=== PATIENT | male | born 1960 | race Caucasian/White ===

== ENCOUNTER → 2020-12-05 | Outpatient (CLI) | payer OTHER ==
--- NOTE | 2020-12-08 07:49 | PE ---
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 TECHNIQUE: Following the intravenous administration of 10.0 mCi of F-18 FDG, whole body images are p erformed from the skull base to the midthigh. Images are reviewed on the computer in the coronal, ax ial, and sagittal planes. Reconstructed rotating images are created on independent workstation and r eviewed on the computer. A localization and attenuation correction CT is performed in conjunction w ith the PET scan. Blood glucose level equals 90. SCAN: Subsequent Scan FINDINGS: SKULL BASE AND NECK: Extensive postsurgical changes now identified. No new suspicious focal hypermet abolic uptake at oropharyngeal level to suggest local neoplastic recurrence. Improved bilateral hypermetabolic adenopathy after interval extensive surgery with more prominent cli ps and subsequent chemotherapy and radiation treatment. There is however 9 x 8 mm lateral right subma ndibular hypermetabolic lymph node axial image 51, max SUV is 6.61. There is also 1.3 x 1.1 cm hyperm etabolic mass or lymph node inferior left parotid gland level axial image 46, max SUV is 9.24. CHEST, MEDIASTINUM, AND HILAR REGION: There is new 1.7 x 1.6 cm hypermetabolic right hilar mass or ly mph node axial image 110, max SUV is. 7.68 Inferior to this there is additional 2.0 x 1.7 cm hypermet abolic right infrahilar mass or lymph node axial image 117, max SUV is 6.08. There are new abnormal hypermetabolic prevascular lymph nodes, for reference axial image 100 Max SUV is 3.41. There is 1.6 x 1.3 cm hypermetabolic subcarinal lymph node axial image 114, max SUV is 4.89. There are right lateral thoracic hypermetabolic subcutaneous nodules for reference two adjacent subce ntimeter nodules axial image 121, max SUV is 3.44 at this level. There is an enlarged 1.8 x 0.8 cm hy permetabolic nodule posterior superior to this axial image 114, max SUV is 4.81. ABDOMEN AND PELVIS: Normal excretion is redemonstrated. No new areas of abnormal hypermetabolic uptak e. OSSEOUS STRUCTURES: No new areas of abnormal hypermetabolic uptake. OTHER CT: Moderate to severe three-vessel coronary artery calcification is redemonstrated, noted shey ed underlying coronary artery disease. Scattered bilateral pelvic phleboliths. IMPRESSION: Interval surgical and posttreatment change with improved local positive treatment respons e but new areas of bilateral neck disease and new thoracic metastatic disease noted as detailed above .
== END | disposition home or self-care (01) ==
LOC: RADPETMAIN 15:50
PROVIDERS: ATTEND Radiology Radiation Oncology
DX: C01 Malignant neoplasm of base of tongue (principal); C79.89 Secondary malignant neoplasm of other specified sites
CPT/HCPCS: 78815; A9552

== ENCOUNTER 2021-01-01 11:19 | Day surgery (SDC) | payer OTHER ==
[2020-12-31 12:10] VITALS: BMI 24.3
[~2021-01-01 11:19] MED LIST: ACETAMINOPHEN TAB 500 MG TAB PO PRN; DEXAMETHASONE SOD PHOSPHATE 4 MG/ML 1 ML VIAL IV ONE; HEPARIN SODIUM,PORCINE/PF 5,000 UNIT/0.5 ML SYRINGE SQ PRN; LACTATED RINGERS 1,000 ML IV SCH; LIDOCAINE 1% (10MG/ML) FOR IV START INTRADERMA PRN; ONDANSETRON 4 MG/2 ML VIAL IVP ONE; Pre Op ABX Message 1 EACH MISC MISCELLANE ONE
[2021-01-01 12:09] VITALS: RESP 16; TEMP 97.8
[2021-01-01] MEDS ORDERED: fentaNYL (PF) 50 MCG/ML 2 ML AMP ONE (12:59)
[2021-01-01] MEDS ORDERED: PROPOFOL 10 MG/ML 20 ML VIAL IV ONE (12:59)
[2021-01-01] MEDS ORDERED: LIDOCAINE 1% INJ 10MG/ML (20 ML MDV) ONE (12:59)
[2021-01-01] MEDS ORDERED: MIDAZOLAM 2 MG/2 ML VIAL ONE (12:59)
--- NOTE | 2021-01-01 13:03 | P.GSHP ---
History of Present Illness H&P Date: 01/01/21 Chief Complaint: Recurrent head and neck cancer Patient here today for Port-A-Cath placement. Patient with history of head and neck cancer which has recurred now twice. He is starting chemotherapy once again. Requesting a port placement for ease of use. 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 and mouth), last chemo 4 months ago, last radiation 09/04/2020 History of Any Multi-Drug Resistant Organisms: None Reported Past Surgical History: Orthopedic Surgery Additional Past Surgical History / Comment(s): 06/06/2019-surgery on tongue to remove cancer and removal of lympth nodes in throat, ben wrist carpal tunnel Past Anesthesia/Blood Transfusion Reactions: No Reported Reaction Additional Past Anesthesia/Blood Transfusion Reaction / Comment(s): states he has some paralysis of rt shoulder and mouth after cancer surgery but states no diff with intubation Smoking Status: Never smoker - Past Family History Mother Family Medical History: Cancer Medications and Allergies Home Medications Medication Instructions Recorded Confirmed Type Cevimeline [Evoxac] 30 mg PO TID 12/31/20 12/31/20 History Losartan Potassium [Cozaar] 100 mg PO DAILY 12/31/20 12/31/20 History Multivitamins, Thera [Multivitamin 1 tab PO DAILY 12/31/20 12/31/20 History (formulary)] fentaNYL 75MCG/HR PATCH [Duragesic 1 patch TRANSDERM Q72H 12/31/20 12/31/20 History 75MCG/HR] oxyCODONE HCL/ACETAMINOPHEN 1 tab PO Q4HR PRN 12/31/20 12/31/20 History [Percocet 10-325 mg] Allergies Allergy/AdvReac Type Severity Reaction Status Date / Time No Known Allergies Allergy Verified 01/01/21 11:46 Surgical - Exam Vital Signs Temp Pulse Resp BP Pulse Ox 97.8 F 74 16 147/80 99 01/01/21 11:47 01/01/21 11:47 01/01/21 11:47 01/01/21 11:47 01/01/21 11:47 Physical exam: General: Well-developed, well-nourished HEENT: Postsurgical scarring, nodule right submandibular, left neck masses Abdomen: Nontender, nondistended Extremities: No edema Neuro: Alert and oriented Assessment and Plan (1) Head and neck cancer Narrative/Plan: Will proceed with Port-A-Cath placement. Risks of bleeding, infection, DVT, pneumothorax, catheter malfunction, anesthesia related complications were discussed. The patient understands and wishes to proceed. Current Visit: Yes Status: Acute Code(s): C76.0 - MALIGNANT NEOPLASM OF HEAD, FACE AND NECK SNOMED Code(s): 527485374
[2021-01-01] MEDS ORDERED: LIDOCAINE 1% INJ 10MG/ML (20 ML MDV) SQ ONE (13:05)
[2021-01-01] MEDS ORDERED: ceFAZolin 1,000 MG VIAL IVPB ONE (13:25)
[2021-01-01] MEDS ORDERED: HYDROmorphone 1 MG/ML 1 ML SYRINGE IVP ONE (14:29)
[2021-01-01 14:32] VITALS: BP 155/95; PULSE 66
[2021-01-01] MEDS ORDERED: NALOXONE 0.4 MG/ML 1 ML VIAL IV PRN (14:32)
--- NOTE | 2021-01-01 14:35 | P.OP ---
Date of Procedure: 01/01/21 Procedure(s) Performed: PREOPERATIVE DIAGNOSIS: Recurrent head and neck cancer POSTOPERATIVE DIAGNOSIS: Same PROCEDURE: Port-A-Cath placement with fluoroscopic and ultrasound guidance SURGEON: Audrey EBL: Minimal ANESTHESIA: Sedation COMPLICATIONS: None OPERATIVE PROCEDURE: Patient was brought and placed on the operative table in the supine position. The patient was sedated per anesthesia that time. The chest and neck were prepped and draped in usual sterile fashion. The ultrasound probe was used to identify the location of the right internal jugular vein. The skin was localized with lidocaine. The Seldinger needle was advanced into the IJ under ultrasound guidance. The wire was advanced through the needle under fluoroscopic guidance into the superior vena cava. A port pocket was created in the right infraclavicular location. The catheter was tunneled from the wire entrance site to the port pocket. The port was then connected to the catheter. The dilator introducer was threaded over the guidewire. The guidewire and dilator were then removed. The catheter was advanced through the introducer and introducer was then removed. The tip was seen to be in the right atrial junction via fluoroscopy. A picture of the radiograph showing the tip at the radial digital junction was taken. Port was flushed with both saline and a Hep- Lock solution. There was good flow both in and out of the port. The port was sutured in underlying tissues using 3-0 silk sutures. The subcutaneous tissues were reapproximated using 3-0 Vicryl sutures and the skin at both locations using 4-0 Monocryl sutures. Skin glue and sterile dressings then applied. DISPOSITION: Stable to recovery room
--- NOTE | 2021-01-01 14:52 | XR ---
EXAMINATION TYPE: XR chest 1V DATE OF EXAM: 01/01/2021 COMPARISON: NONE HISTORY: Port-A-Cath insertion TECHNIQUE: Single frontal view of the chest is obtained. FINDINGS: Right Mediport catheter with its tip at the cavoatrial junction. Heart size is within norm al limits. Atherosclerotic aortic knob. No focal consolidation, pneumothorax or pleural effusion. Scout gical clips project over the bilateral neck. IMPRESSION: 1. No acute pulmonary disease. Right Mediport catheter with the tip the cavoatrial junction.
--- NOTE | 2021-01-02 16:14 | FL ---
Fluoroscopy HISTORY: Pain 17 seconds fluoroscopy time supplied to the referring clinician. Single C-arm image for Port-A-Cath p lacement. See dictated report from Dr. Ventura.
== END 2021-01-01 15:07 | disposition home or self-care (01) ==
LOC: OR 11:19
PROVIDERS: ATTEND Surgery
DX: C76.0 Malignant neoplasm of head, face and neck (principal); I10 Essential (primary) hypertension; Z92.21 Personal history of antineoplastic chemotherapy; Z92.3 Personal history of irradiation; Z98.890 Other specified postprocedural states; Z80.9 Family history of malignant neoplasm, unspecified; Z79.891 Long term (current) use of opiate analgesic; Z79.899 Other long term (current) drug therapy
CPT/HCPCS: 36561; 76937; 77001; 71045; C1788; J2250; J1100; J2405; J0690; J2001; J3010; J1170; J1642; J2704; J1644

== ENCOUNTER → 2021-03-06 | Outpatient (CLI) | payer OTHER ==
--- NOTE | 2021-03-10 08:29 | PE ---
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 Currently undergoing chemotherapy. TECHNIQUE: Following the intravenous administration of 10.42 mCi of F-18 FDG, whole body images are performed from the skull base to the midthigh. Images are reviewed on the computer in the coronal, a xial, and sagittal planes. Reconstructed rotating images are created on independent workstation and reviewed on the computer. A localization and attenuation correction CT is performed in conjunction with the PET scan. Dedicated PET/CT imaging of the neck. Blood glucose level equals 143 SCAN: Subsequent Scan FINDINGS: SKULL BASE AND NECK: The prior visualized hypermetabolic right submandibular 9 x 8 mm lymph node now is not clearly identified. Also similar 1.1 x 1.3 cm left inferior parotid gland mass or lymph node i s not clearly identified. Extensive surgical changes to bilateral neck are redemonstrated. There is more hypermetabolic cervica l muscular uptake bilaterally on current study. Nonspecific symmetric uptake at level of vocal cords presumed benign. Only suspicious area is right lateral mandibular 1.7 x 1.0 cm hypermetabolic area ax ial image 48, max SUV is 3.44. This area may have been present prior study axial image 53 fusion and 51 series 3. CHEST, MEDIASTINUM, AND HILAR REGION: Right hilar lymph nodes show improvement in size and hypermetab olic uptake 117, max SUV is versus 7.68 prior study. No abnormal hypermetabolic uptake prevascular region current study consistent with positive treatment response. There is no abnormal hypermetabolic uptake in subcarinal lymph node current study also. Right lateral thoracic hypermetabolic lymph nodes near axial image 112 are diminished in size and cur rently ametabolic. No new areas of abnormal hypermetabolic uptake. ABDOMEN AND PELVIS: No new areas of abnormal hypermetabolic uptake. OSSEOUS STRUCTURES: Multiple new hypermetabolic osseous metastatic lesions. For reference destructive inferior right scapular lesion axial image 106. There is hypermetabolic lesion left scapula axial im age 78. This hypermetabolic lesion inferior sternum responding to subtle sclerotic lesion right of mi dline axial image 130. For metabolic subtle lytic thoracic lesions noted T6 level and T8 level. There are is hypermetabolic left sacral lesion axial image 223 and some additional scattered sclerotic les ions throughout the pelvis bilaterally including left proximal femur axial image 267. Subtle right lo wer lateral rib lesion axial image 160. OTHER CT: New Right internal jugular Mediport catheter terminates in SVC. Moderate to severe three-ve ssel coronary artery calcification is redemonstrated, noted marked underlying coronary artery disease . Small right pleural effusion. Scattered bilateral pelvic phleboliths are redemonstrated.. IMPRESSION: Overall mixed response. New Osseous metastatic disease but positive treatment response to cervical and thoracic lesion involvement as detailed above.
== END | disposition home or self-care (01) ==
LOC: RADPETMAIN 09:40
PROVIDERS: ATTEND Internal Medicine Hematology & Oncology
DX: C79.51 Secondary malignant neoplasm of bone (principal); C02.9 Malignant neoplasm of tongue, unspecified
CPT/HCPCS: 78815; A9552

== ENCOUNTER 2021-03-11 23:44 | Inpatient (IN) | payer BC, OTHER ==
[2021-03-12] MEDS ORDERED: ONDANSETRON 4 MG/2 ML VIAL IVP STA (00:27)
[2021-03-12] MEDS ORDERED: HYDROmorphone 1 MG/ML 1 ML SYRINGE IVP STA ×2 (00:27→02:24)
--- NOTE | 2021-03-12 00:34 | ED ---
Nausea/Vomiting/Diarrhea HPI - General Source: patient, RN notes reviewed Mode of arrival: ambulatory Limitations: no limitations <Marlo Schneider - Last Filed: 03/12/21 02:25> <Brant Ritchie - Last Filed: 03/14/21 13:43> - General Chief complaint: Nausea/Vomiting/Diarrhea Stated complaint: CA pt, pain Time Seen by Provider: 03/12/21 00:05 - History of Present Illness Initial comments: This is a 60-year-old male presents emergency Department chief complaint of back pain. 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 Patient states that he has back a pain is unbearable uncontrollable his oxycodone, fentanyl patch. Patient that no bowel bladder incontinence or retention no chest pain or shortness of breath. Patient had some nausea and decreased oral intake. Patient is currently seen Dr. Nieves, is in between treatments not on chemotherapy or radiation. (Marlo Schneider) - Related Data Home Medications Medication Instructions Recorded Confirmed Cevimeline [Evoxac] 30 mg PO TID 12/31/20 03/12/21 Losartan Potassium [Cozaar] 100 mg PO DAILY 12/31/20 03/12/21 Multivitamins, Thera [Multivitamin 1 tab PO DAILY 12/31/20 03/12/21 (formulary)] Pilocarpine [Salagen] 5 mg PO TID 03/12/21 03/12/21 Polyethylene Glycol 3350 [Miralax] 17 gm PO BID PRN 03/12/21 03/12/21 Sennosides/Docusate Sodium [Senna 2 cap PO HS 03/12/21 03/12/21 Plus 8.6-50 mg Softgel] fentaNYL 100MCG/HR PATCH 1 patch TRANSDERM Q48H 03/12/21 03/12/21 [Duragesic 100MCG/HR] fentaNYL 25MCG/HR PATCH [Duragesic 2 patch TRANSDERM Q48H 03/12/21 03/12/21 25MCG/HR] oxyCODONE HCL [oxyCODONE HCL (IR)] 15 - 30 mg PO Q6H PRN 03/12/21 03/12/21 Allergies Allergy/AdvReac Type Severity Reaction Status Date / Time No Known Allergies Allergy Verified 03/12/21 08:26 Review of Systems ROS Other: All systems not noted in ROS Statement are negative. <Marlo Schneider - Last Filed: 03/12/21 02:25> ROS Other: All systems not noted in ROS Statement are negative. <Brant Ritchie - Last Filed: 03/14/21 13:43> ROS Statement: Those systems with pertinent positive or pertinent negative responses have been documented in the HPI. 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 mets to back. History of Any Multi-Drug Resistant Organisms: None Reported Past Surgical History: Orthopedic Surgery Additional Past Surgical History / Comment(s): 06/06/2019-surgery on tongue to remove cancer and removal of lympth nodes in throat, ben wrist carpal tunnel Past Anesthesia/Blood Transfusion Reactions: No Reported Reaction Additional Past Anesthesia/Blood Transfusion Reaction / Comment(s): states he has some paralysis of rt shoulder and mouth after cancer surgery but states no diff with intubation Past Psychological History: No Psychological Hx Reported Smoking Status: Never smoker Past Alcohol Use History: None Reported Past Drug Use History: None Reported - Past Family History Mother Family Medical History: Cancer <Marlo Schneider - Last Filed: 03/12/21 02:25> General Exam Limitations: no limitations General appearance: alert, in no apparent distress Head exam: Present: atraumatic, normocephalic, normal inspection Neck exam: Present: normal inspection. Absent: tenderness, meningismus, lymphadenopathy Respiratory exam: Present: normal lung sounds bilaterally. Absent: respiratory distress, wheezes, rales, rhonchi, stridor Cardiovascular Exam: Present: regular rate, normal rhythm, normal heart sounds. Absent: systolic murmur, diastolic murmur, rubs, gallop, clicks GI/Abdominal exam: Present: soft, normal bowel sounds. Absent: distended, tenderness, guarding, rebound, rigid Back exam: Present: tenderness, vertebral tenderness. Absent: full ROM Neurological exam: Present: alert, oriented X3 <Marlo Schneider - Last Filed: 03/12/21 02:25> Course Vital Signs 03/11/21 03/12/21 03/12/21 23:46 00:30 02:37 Temperature 98.3 F 98.7 F Pulse Rate 100 78 75 Pulse Rate [ Pulse Oximetery ] Respiratory 20 20 18 Rate Blood Pressure 184/99 163/97 156/81 Blood Pressure [Left Arm] O2 Sat by Pulse 93 L 96 98 Oximetry 03/12/21 03/12/21 03/12/21 07:50 13:00 19:21 Temperature 98.6 F 98.8 F Pulse Rate 65 86 Pulse Rate [ 81 Pulse Oximetery ] Respiratory 18 16 20 Rate Blood Pressure 154/87 187/92 Blood Pressure 182/90 [Left Arm] O2 Sat by Pulse 99 99 99 Oximetry Medical Decision Making - Lab Data Result diagrams: 03/12/21 00:55 03/12/21 00:55 <Marlo Schneider - Last Filed: 03/12/21 02:25> - Lab Data Result diagrams: 03/13/21 06:02 03/14/21 05:31 <Brant Ritchie - Last Filed: 03/14/21 13:43> - Medical Decision Making I saw this patient in conjunction with the physician research program assistant. I performed independent history and physical exam. Agree with case management. (Brant Mason) - Lab Data Lab Results 03/12/21 03/12/21 03/12/21 Range/Units 00:55 00:55 00:55 WBC 3.3 L (3.8-10.6) k/uL RBC 3.04 L (4.30-5.90) m/uL Hgb 10.1 L (13.0-17.5) gm/dL Hct 28.9 L (39.0-53.0) % MCV 95.2 (80.0-100.0) fL MCH 33.3 (25.0-35.0) pg MCHC 35.0 (31.0-37.0) g/dL RDW 19.1 H (11.5-15.5) % Plt Count 25 L (150-450) k/uL MPV 6.7 Neutrophils % 78 % Lymphocytes % 12 % Monocytes % 5 % Eosinophils % 1 % Basophils % 1 % Neutrophils # 2.6 (1.3-7.7) k/uL Lymphocytes # 0.4 L (1.0-4.8) k/uL Monocytes # 0.2 (0-1.0) k/uL Eosinophils # 0.0 (0-0.7) k/uL Basophils # 0.0 (0-0.2) k/uL Poikilocytosis Slight Anisocytosis Slight Macrocytosis Slight Sodium 135 L (137-145) mmol/L Potassium 3.9 (3.5-5.1) mmol/L Chloride 96 L (98-107) mmol/L Carbon Dioxide 33 H (22-30) mmol/L Anion Gap 6 mmol/L BUN 20 (9-20) mg/dL Creatinine 1.44 H (0.66-1.25) mg/dL Est GFR (CKD-EPI)AfAm 60 (>60 ml/min/1.73 sqM) Est GFR (CKD-EPI)NonAf 52 (>60 ml/min/1.73 sqM) Glucose 118 H (74-99) mg/dL Calcium 14.7 H* (8.4-10.2) mg/dL Total Bilirubin 0.8 (0.2-1.3) mg/dL AST 27 (17-59) U/L ALT 11 (4-49) U/L Alkaline Phosphatase 101 (38-126) U/L Troponin I <0.012 (0.000-0.034) ng/mL Total Protein 6.6 (6.3-8.2) g/dL Albumin 3.3 L (3.5-5.0) g/dL Vitamin D 25-Hydroxy (30.0-100.0) ng/mL TSH (0.350-5.500) uIU/mL 03/12/21 Range/Units 00:55 WBC (3.8-10.6) k/uL RBC (4.30-5.90) m/uL Hgb (13.0-17.5) gm/dL Hct (39.0-53.0) % MCV (80.0-100.0) fL MCH (25.0-35.0) pg MCHC (31.0-37.0) g/dL RDW (11.5-15.5) % Plt Count (150-450) k/uL MPV Neutrophils % % Lymphocytes % % Monocytes % % Eosinophils % % Basophils % % Neutrophils # (1.3-7.7) k/uL Lymphocytes # (1.0-4.8) k/uL Monocytes # (0-1.0) k/uL Eosinophils # (0-0.7) k/uL Basophils # (0-0.2) k/uL Poikilocytosis Anisocytosis Macrocytosis Sodium (137-145) mmol/L Potassium (3.5-5.1) mmol/L Chloride (98-107) mmol/L Carbon Dioxide (22-30) mmol/L Anion Gap mmol/L BUN (9-20) mg/dL Creatinine (0.66-1.25) mg/dL Est GFR (CKD-EPI)AfAm (>60 ml/min/1.73 sqM) Est GFR (CKD-EPI)NonAf (>60 ml/min/1.73 sqM) Glucose (74-99) mg/dL Calcium (8.4-10.2) mg/dL Total Bilirubin (0.2-1.3) mg/dL AST (17-59) U/L ALT (4-49) U/L Alkaline Phosphatase (38-126) U/L Troponin I (0.000-0.034) ng/mL Total Protein (6.3-8.2) g/dL Albumin (3.5-5.0) g/dL Vitamin D 25-Hydroxy 45.6 (30.0-100.0) ng/mL TSH 1.020 (0.350-5.500) uIU/mL Disposition <Marlo Schneider - Last Filed: 03/12/21 02:25> <Brant Ritchie - Last Filed: 03/14/21 13:43> Clinical Impression: Pancytopenia, Metastatic cancer Disposition: ADMITTED IP TO THIS HOSP Condition: Fair
[2021-03-12 01:23] LABS: Albumin 3.3 g/dL (3.5-5.0); Total Bilirubin 0.8 mg/dL (0.2-1.3); Total Protein 6.6 g/dL (6.3-8.2)
[2021-03-12 01:46] LABS: Anisocytosis Slight; Basophils % (A) 1 %; Eosinophils % (A) 1 %; HCT 28.9 % (39.0-53.0); HGB 10.1 gm/dL (13.0-17.5); Lymphocytes # (A) 0.4 k/uL (1.0-4.8); Lymphocytes % (A) 12 %; MCH 33.3 pg (25.0-35.0); MCV 95.2 fL (80.0-100.0); Macrocytosis Slight; Mean Platelet Volume 6.7; Monocytes # (A) 0.2 k/uL (0-1.0); Monocytes % (A) 5 %; Neutrophils # (A) 2.6 k/uL (1.3-7.7); Neutrophils % (A) 78 %; Poikilocytosis Slight; RBC 3.04 m/uL (4.30-5.90); RDW 19.1 % (11.5-15.5); WBC 3.3 k/uL (3.8-10.6)
[2021-03-12 01:59] LABS: Potassium 3.9 mmol/L (3.5-5.1)
[2021-03-12 02:11] LABS: Platelet Count 25 k/uL (150-450)
[2021-03-12] MEDS ORDERED: HYDROmorphone 0.5 MG/0.5 ML SYRINGE IVP PRN (02:28)
[2021-03-12] MEDS ORDERED: NALOXONE 0.4 MG/ML 1 ML VIAL IV PRN (02:28)
[2021-03-12] MEDS ORDERED: ONDANSETRON 4 MG/2 ML VIAL IVP PRN ×2 (02:28→12:01)
[2021-03-12] MEDS ORDERED: oxyCODONE-APAP 10-325MG 1 EACH TAB PO PRN (02:29)
[2021-03-12] MEDS ORDERED: SODIUM CHLORIDE 0.9% 1,000 ML IV SCH (02:30)
[2021-03-12 03:15] LABS: Calcium 14.7 mg/dL (8.4-10.2)
[2021-03-12] MEDS ORDERED: SODIUM CHLORIDE 0.9% 1,000 ML IV ONE ×2 (03:42→03:46)
[2021-03-12] MEDS ORDERED: SODIUM CHLORIDE 0.9% 250 ML with PAMIDRONATE 30 MG IV ONE ×2 (03:47)
[2021-03-12] MEDS: HYDROmorphone 1 MG/ML 1 ML SYRINGE IVP PRN ×5 (05:20→23:00)
[2021-03-12] MEDS ORDERED: LOSARTAN 50 MG TAB PO SCH (09:00)
[2021-03-12] MEDS ORDERED: polyethylene glycoL 3350 17 GM POWD.PACK PO PRN (10:26)
[2021-03-12] MEDS: PILOCARPINE 5 MG TAB PO SCH ×3 (11:54→23:04)
[2021-03-12] MEDS: SODIUM CHLORIDE 0.9% 1,000 ML IV SCH ×2 (11:54→23:02)
[2021-03-12] MEDS: CEVIMELINE 30 MG CAP PO SCH ×3 (11:54→23:04)
--- NOTE | 2021-03-12 12:02 | P.CONS ---
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 he did well until April/2020 when he noticed enlarged right neck mass,he had U/S guided biopsy on 05/08/2020,pathology was positive for squamous cell carcinoma. On 05/08/2020,PET scan revealed suspicious uptake in bilateral cervical nodes. On 06/03/2020,he underwent bilateral neck dissection,pathology revealed 18 nodes positive for metastatic squamous cell carcinoma with extracapsular extension. The above treatment was by at [facility] in [place] by Dr Orr. On 07/23/2020,he started weekly cisplatin (due to borderline creatinine) and XRT,treatment completed on 09/11/2020,he tolerated it with significant difficulties. He has disease progression in November/2020 with metastatic disease to thoracic nodes,biopsy of left neck lesion on 12/09/2020 was positive,he had a PET scan in December/2020 which revealed recurrent disease in his neck with metastasis to hilar,mediastinal and axillary nodes. On 01/08/2021,he started carboplatin/5FU/Keytruda. On 03/07/2021,repeat PET scan revealed disease progression with new and multiple osseous lesions,including right shoulder,T spine and left femur neck He l feels tired,very difficulty swallowing but maintaining his weight,he uses ensure,he is drinking enough water,still has pain in his neck and throat, however,he has significant worsening of right shoulder and back pain,10/10 in severity,also he has mild left hip pian. Unfortunetly his pain has not been controlled on regimen at home and palliative radiation was not scheduled for a couple weeks so he presented to ER for further pain control. at bedside during evaluation Review of Systems All systems: negative Constitutional: Reports as per HPI 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 and mouth), last chemo 4 months ago, last radiation 09/04/2020. mets to back. History of Any Multi-Drug Resistant Organisms: None Reported Past Surgical History: Orthopedic Surgery Additional Past Surgical History / Comment(s): 06/06/2019-surgery on tongue to remove cancer and removal of lympth nodes in throat, ben wrist carpal tunnel Past Anesthesia/Blood Transfusion Reactions: No Reported Reaction Additional Past Anesthesia/Blood Transfusion Reaction / Comm: states he has some paralysis of rt shoulder and mouth after cancer surgery but states no diff with intubation Past Psychological History: No Psychological Hx Reported Smoking Status: Never smoker Past Alcohol Use History: None Reported Past Drug Use History: None Reported - Past Family History Mother Family Medical History: Cancer Medications and Allergies Home Medications Medication Instructions Recorded Confirmed Type Cevimeline [Evoxac] 30 mg PO TID 12/31/20 03/12/21 History Losartan Potassium [Cozaar] 100 mg PO DAILY 12/31/20 03/12/21 History Multivitamins, Thera [Multivitamin 1 tab PO DAILY 12/31/20 03/12/21 History (formulary)] Pilocarpine [Salagen] 5 mg PO TID 03/12/21 03/12/21 History Polyethylene Glycol 3350 [Miralax] 17 gm PO BID PRN 03/12/21 03/12/21 History Sennosides/Docusate Sodium [Senna 2 cap PO HS 03/12/21 03/12/21 History Plus 8.6-50 mg Softgel] fentaNYL 100MCG/HR PATCH 1 patch TRANSDERM Q48H 03/12/21 03/12/21 History [Duragesic 100MCG/HR] fentaNYL 25MCG/HR PATCH [Duragesic 2 patch TRANSDERM Q48H 03/12/21 03/12/21 History 25MCG/HR] oxyCODONE HCL [oxyCODONE HCL (IR)] 15 - 30 mg PO Q6H PRN 03/12/21 03/12/21 History Allergies Allergy/AdvReac Type Severity Reaction Status Date / Time No Known Allergies Allergy Verified 03/12/21 08:26 Physical Exam Vitals: Vital Signs Temp Pulse Resp BP Pulse Ox 03/12/21 07:50 65 18 154/87 99 03/12/21 02:37 75 18 156/81 98 03/12/21 00:30 98.7 F 78 20 163/97 96 03/11/21 23:46 98.3 F 100 20 184/99 93 L Intake and Output 03/11/21 03/12/21 03/12/21 22:59 06:59 14:59 Other: Weight 77.111 kg - Constitutional General appearance: cooperative, mild distress - EENT Right sided neck skin changes and evidenced malignancy Eyes: EOMI ENT: hard of hearing, NA/AT - Cardiovascular Rhythm: regular - Gastrointestinal General gastrointestinal: soft - Integumentary Integumentary: pale - Neurologic Neurologic: CNII-XII intact - Musculoskeletal Musculoskeletal: generalized weakness - Psychiatric Psychiatric: A&O x's 3, appropriate affect, intact judgment & insight Results CBC & Chem 7: 03/12/21 00:55 03/12/21 00:55 Labs: Abnormal Lab Results - Last 24 Hours (Table) 03/12/21 03/12/21 Range/Units 00:55 00:55 WBC 3.3 L (3.8-10.6) k/uL RBC 3.04 L (4.30-5.90) m/uL Hgb 10.1 L (13.0-17.5) gm/dL Hct 28.9 L (39.0-53.0) % RDW 19.1 H (11.5-15.5) % Plt Count 25 L (150-450) k/uL Lymphocytes # 0.4 L (1.0-4.8) k/uL Sodium 135 L (137-145) mmol/L Chloride 96 L (98-107) mmol/L Carbon Dioxide 33 H (22-30) mmol/L Creatinine 1.44 H (0.66-1.25) mg/dL Glucose 118 H (74-99) mg/dL Calcium 14.7 H* (8.4-10.2) mg/dL Albumin 3.3 L (3.5-5.0) g/dL Assessment and Plan (1) Pain, neoplasm-related Current Visit: Yes Status: Acute Code(s): G89.3 - NEOPLASM RELATED PAIN (ACUTE) (CHRONIC) SNOMED Code(s): 97321936023766 (2) Bone metastases Current Visit: Yes Status: Acute Code(s): C79.51 - SECONDARY MALIGNANT NEOPLASM OF BONE SNOMED Code(s): 52462107 (3) Hypercalcemia Current Visit: Yes Status: Acute Code(s): E83.52 - HYPERCALCEMIA SNOMED Code(s): 68279692 (4) Constipation Current Visit: Yes Status: Acute Code(s): K59.00 - CONSTIPATION, UNSPECIFIED SNOMED Code(s): 80255870 (5) Metastatic cancer Current Visit: Yes Status: Acute Code(s): C79.9 - SECONDARY MALIGNANT NEOPLASM OF UNSPECIFIED SITE SNOMED Code(s): 784981940 (6) Pancytopenia Current Visit: Yes Status: Acute Code(s): D61.818 - OTHER PANCYTOPENIA SNOMED Code(s): 331117076 (7) Head and neck cancer Current Visit: No Status: Acute Code(s): C76.0 - MALIGNANT NEOPLASM OF HEAD, FACE AND NECK SNOMED Code(s): 283675641 Plan: We will ask radiaiton oncology to evaluate and hopefully initiate treatment for management of pain palliatively to the bone, area of tumor invading bone - symptomatic Treatment of hypercalcemia with 90mcg of aredia, 30mg given today may repeat for full therapeutic dosing. Continue Hydration IV fluids, add calcitonin, Check Magnesium, Phos, and VItamin D levels and repeat calcium in am Increase fentanyl patch 200mcg, Continue on breakthrough IR oxycodone. Bowel Regimen to avoid narcotic induced constipation PT/OT to maintain adequate performance status Recent progression on images: Chemotherapy and Immune therapy recently discontinued. Physician Attest: I have completed the full history and physical and agree with above dictation, dictated as a scribe
[2021-03-12 12:28] LABS: INR 1.1 (<1.2); Partial Thromboplastin Time 24.3 sec (22.0-30.0); Prothrombin Time 11.5 sec (9.0-12.0)
[2021-03-12] MEDS ORDERED: CALCITONIN INJ 200 UNIT/ML (MDV) VIAL SQ ONE (13:00)
[2021-03-12] MEDS: DEXAMETHASONE SOD PHOSPHATE 4 MG/ML 1 ML VIAL IV SCH ×2 (13:42→23:00)
[2021-03-12] MEDS: LIDOCAINE 5% PATCH TOPICAL SCH (13:48)
--- NOTE | 2021-03-12 15:56 | P.HPIM ---
History of Present Illness H&P Date: 03/12/21 Chief Complaint: Increasing back pain History of presenting complaint: This is a pleasant 60-year-old patient of Dr. Skelton. Patient's oncologist is Dr. Mcelroy. About 2 years ago patient was diagnosed with tongue cancer. Underwent partial glossectomy with some lymph node removal. It was felt that time all the tumor was removed. Patient had recurrence of his lymph nodes and patient underwent surgery in the neck and several lymph nodes were removed about 6 months ago. Patient subsequently has undergone 2 rounds of chemotherapy. Also received radiation treatment. Right now he is between treatments for the cause being determined. Patient has underlying dysphagia and has difficulty swallowing. Patient been having weight loss and decreased appetite. Patient now presents with worsening low back pain for 2 weeks. Was able to walk. Patient not had a bowel movement for last 2 weeks. Normally able to go every other day. No change in urine pattern. Denies any fever and chills. Patient question was found to be hypercalcemic in the ER, and was given IV pamidronate. Oncology was consulted. Also calcitonin was ordered this morning by oncology. Patient had a PET scan 2 days ago results of which are noted below. Has shown progression of metastatic osseous disease. Review of systems: GEN.: Tired with decreased appetite EYES: None HEENT: Some trouble swallowing NECK: None RESPIRATORY: None CARDIOVASCULAR: None GASTROINTESTINAL: Constipation GENITOURINARY: None MUSCULOSKELETAL: As above LYMPHATICS: None HEMATOLOGICAL: None PSYCHIATRY: Anxious NEUROLOGICAL: None Past medical history to include: Hypertension, The Tongue (of the Neck with Chemotherapy and Radiation Treatment and Has Metastatic Disease to the Spine. Patient Has Some Weakness of the Right Shoulder from Surgery. Social History: . Does Not Smoke or Drink Alcohol. 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 Family History: Cancer Physical examination: VITAL SIGNS: 98.7, 78, 20, 156/81, 98% on room air GENERAL: BMI 24.4, sitting up in bed, tired. EYES: Pupils equal. Conjunctiva palel. HEENT: Some facial and neck asymmetry. Partial tongue removed from the right side. NECK: JVD unable to assess; masses not palpable. HEART: First and second heart sounds are normal; no edema. LUNGS: Respiratory rate normal; clear to auscultation. ABDOMEN: Soft, nontender, liver spleen not palpable, no masses palpable. PSYCH: Alert and oriented x3; mood and affect anxiousl. NEUROLOGICAL: Facial and neck asymmetry. Speech is a bit slow. Power and sensation grossly intact. LYMPHATICS: No lymph nodes palpable in the axilla and neck INVESTIGATIONS, reviewed in the clinical context: White count 3.3 hemoglobin 10.1 platelets 25 sodium 135 potassium 3.9 BUN 20 creatinine 1.44 Glucose 118 calcium 14.7 albumin 3.3 EKG tracing personally reviewed by me-normal sinus rhythm, 74/m PET scan [03/10/2021]: Multiple new hypermetabolic osseous metastatic lesions. Destructive inferior right scapular lesion. Hypermetabolic lesions left scapula. Also inferior sternum. Metabolic septal lactic thoracic lesion T6 level through T8. Some scattered sclerotic lesions throughout the pelvis bilaterally including the left proximal femur. Right lower lateral lip lesion. Assessment and plan: -This is a patient with known malignancy initially starting off in the tongue 2 years ago with partial glossectomy. Sump lymph nodes were removed. Patient has recurrence in about 6 months ago patient's second surgery with removal of several lymph nodes. Patient has received 2 rounds of chemotherapy and radiation treatment. Has known metastatic disease. Patient now presented with increasing lumbar pain. From metastatic disease. Patient has significant pain medications at home. We will order a lidocaine patch. Heating pad. -Hypercalcemia of malignancy. Also contribution from decreased oral intake. Patient did receive IV pamidronate in the ER. IV calcitonin ordered by oncology. IV fluids at 1 30 mL's an hour. 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 -Essential hypertension Given chronic kidney disease, with MIKEY Monroear and start the patient on Catapres. -Pancytopenia, likely from chemotherapy Follow CBC -Acute on chronic pain from metastatic disease of the lower lumbar spine. Continue with fentanyl. Had some lateral to patch. Oxycodone when necessary. K-pad -Chronic constipation with acute exacerbation from narcotics [Patient has no nausea vomiting. No abdominal pain. Has been eating.] We'll give soapsuds enema for now. Continue laxatives -Chronic kidney disease, stage III Patient's creatinine was 1.75 in September of this year. We will order renal ultrasound and a UA. -Mild protein calorie malnutrition from decreased oral intake from underlying malignancy. Add ensure IV fluids. Patient received IV pamidronate. Subcu calcitonin. Ultrasound and UA. Pain control. Soapsuds enema. Consultation to oncology. Follow labs. Given the complexity and severity of patient's condition expect the patient to be in the hospital at least for 2 overnights 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 and mouth), last chemo 4 months ago, last radiation 09/04/2020. mets to back. History of Any Multi-Drug Resistant Organisms: None Reported Past Surgical History: Orthopedic Surgery Additional Past Surgical History / Comment(s): 06/06/2019-surgery on tongue to remove cancer and removal of lympth nodes in throat, ben wrist carpal tunnel Past Anesthesia/Blood Transfusion Reactions: No Reported Reaction Additional Past Anesthesia/Blood Transfusion Reaction / Comment(s): states he has some paralysis of rt shoulder and mouth after cancer surgery but states no diff with intubation Past Psychological History: No Psychological Hx Reported Smoking Status: Never smoker Past Alcohol Use History: None Reported Past Drug Use History: None Reported - Past Family History Mother Family Medical History: Cancer Medications and Allergies Home Medications Medication Instructions Recorded Confirmed Type Cevimeline [Evoxac] 30 mg PO TID 12/31/20 03/12/21 History Losartan Potassium [Cozaar] 100 mg PO DAILY 12/31/20 03/12/21 History Multivitamins, Thera [Multivitamin 1 tab PO DAILY 12/31/20 03/12/21 History (formulary)] Pilocarpine [Salagen] 5 mg PO TID 03/12/21 03/12/21 History Polyethylene Glycol 3350 [Miralax] 17 gm PO BID PRN 03/12/21 03/12/21 History Sennosides/Docusate Sodium [Senna 2 cap PO HS 03/12/21 03/12/21 History Plus 8.6-50 mg Softgel] fentaNYL 100MCG/HR PATCH 1 patch TRANSDERM Q48H 03/12/21 03/12/21 History [Duragesic 100MCG/HR] fentaNYL 25MCG/HR PATCH [Duragesic 2 patch TRANSDERM Q48H 03/12/21 03/12/21 History 25MCG/HR] oxyCODONE HCL [oxyCODONE HCL (IR)] 15 - 30 mg PO Q6H PRN 03/12/21 03/12/21 History Allergies Allergy/AdvReac Type Severity Reaction Status Date / Time No Known Allergies Allergy Verified 03/12/21 08:26 Physical Exam Vitals: Vital Signs Temp Pulse Resp BP Pulse Ox 03/12/21 07:50 65 18 154/87 99 03/12/21 02:37 75 18 156/81 98 03/12/21 00:30 98.7 F 78 20 163/97 96 03/11/21 23:46 98.3 F 100 20 184/99 93 L Intake and Output 03/11/21 03/12/21 03/12/21 22:59 06:59 14:59 Other: Weight 77.111 kg Results CBC & Chem 7: 03/12/21 00:55 03/12/21 00:55 Labs: Abnormal Lab Results - Last 24 Hours (Table) 03/12/21 03/12/21 Range/Units 00:55 00:55 WBC 3.3 L (3.8-10.6) k/uL RBC 3.04 L (4.30-5.90) m/uL Hgb 10.1 L (13.0-17.5) gm/dL Hct 28.9 L (39.0-53.0) % RDW 19.1 H (11.5-15.5) % Plt Count 25 L (150-450) k/uL Lymphocytes # 0.4 L (1.0-4.8) k/uL Sodium 135 L (137-145) mmol/L Chloride 96 L (98-107) mmol/L Carbon Dioxide 33 H (22-30) mmol/L Creatinine 1.44 H (0.66-1.25) mg/dL Glucose 118 H (74-99) mg/dL Calcium 14.7 H* (8.4-10.2) mg/dL Albumin 3.3 L (3.5-5.0) g/dL
[2021-03-12] MEDS: PANTOPRAZOLE 40 MG TABLET PO SCH (18:28)
[2021-03-12] MEDS ORDERED: SENNOSIDES-DOCUSATE SODIUM 1 EACH TAB PO SCH (21:00)
--- NOTE | 2021-03-12 22:37 | US ---
EXAMINATION TYPE: US kidneys/renal and bladder DATE OF EXAM: 03/12/2021 COMPARISON: NONE CLINICAL HISTORY: Acute versus CK D. Acute versus CKD. EXAM MEASUREMENTS: Right Kidney: 11.2 x 5.9 x 4.6 cm Left Kidney: 11.4 x 4.9 x 4.2 cm Right Kidney: Renal pelvis appears dilated. Left Kidney: No hydronephrosis or masses seen Bladder: Internal echoes seen. Additional hyperechoic area seen on the right: 0.7 x 1.0 x 0.4 cm. Bilateral Jets seen: Yes IMPRESSION: There is some enlargement of the right renal pelvis. There is bilateral ureteral jets in the urinary bladder and I do not see evidence for obstruction. There is some echogenicity in the dependent bladde r that could be debris. Small bladder tumor not excluded. No evidence of a solid renal mass.
[2021-03-12] MEDS: PSYLLIUM HUSK 100% 6 GM PACKET PO SCH (23:03)
[2021-03-12] MEDS: cloNIDine HCL 0.1 MG TAB PO SCH (23:03)
[2021-03-12] MEDS: SENNOSIDES-DOCUSATE SODIUM 1 EACH TAB PO SCH (23:03)
[2021-03-12] MEDS ORDERED: LIDOCAINE 5% PATCH TOPICAL ONE (23:59)
[2021-03-13] MEDS: HYDROmorphone 1 MG/ML 1 ML SYRINGE IVP PRN ×5 (03:43→23:46)
[2021-03-13] MEDS: DEXAMETHASONE SOD PHOSPHATE 4 MG/ML 1 ML VIAL IV SCH ×3 (03:43→19:37)
[2021-03-13] MEDS: SODIUM CHLORIDE 0.9% 1,000 ML IV SCH ×3 (03:46→17:43)
[2021-03-13 06:48] LABS: Anisocytosis Slight; Basophils % (A) 0 %; Eosinophils % (A) 0 %; HCT 21.8 % (39.0-53.0); Lymphocytes # (A) 0.4 k/uL (1.0-4.8); Lymphocytes % (A) 18 %; MCH 34.7 pg (25.0-35.0); MCHC 36.4 g/dL (31.0-37.0); MCV 95.3 fL (80.0-100.0); Macrocytosis Slight; Mean Platelet Volume 9.6; Monocytes # (A) 0.1 k/uL (0-1.0); Monocytes % (A) 2 %; Neutrophils # (A) 1.7 k/uL (1.3-7.7); Neutrophils % (A) 79 %; Platelet Count 29 k/uL (150-450); Poikilocytosis Slight; RBC 2.29 m/uL (4.30-5.90); RDW 18.2 % (11.5-15.5); WBC 2.2 k/uL (3.8-10.6)
[2021-03-13 06:51] LABS: HGB 7.9 gm/dL (13.0-17.5)
[2021-03-13 07:16] LABS: ALT 9 U/L (4-49); AST 21 U/L (17-59); African American GFR (CKD) 68 (>60 ml/min/1.73 sqM); Albumin 2.9 g/dL (3.5-5.0); Alkaline Phosphatase 79 U/L (38-126); Anion Gap 3 mmol/L; Blood Urea Nitrogen 20 mg/dL (9-20); Calcium 12.2 mg/dL (8.4-10.2); Carbon Dioxide 30 mmol/L (22-30); Chloride 103 mmol/L (98-107); Globulin 2.8 g/dL; Glucose 153 mg/dL (74-99); Magnesium 1.2 mg/dL (1.6-2.3); Non-African American GFR(CKD) 59 (>60 ml/min/1.73 sqM); Phosphorus 2.3 mg/dL (2.5-4.5); Potassium 4.3 mmol/L (3.5-5.1); Sodium 136 mmol/L (137-145); Total Bilirubin 0.4 mg/dL (0.2-1.3); Total Protein 5.7 g/dL (6.3-8.2)
[2021-03-13] MEDS: cloNIDine HCL 0.1 MG TAB PO SCH ×2 (08:12→21:09)
[2021-03-13] MEDS: MULTIVITAMINS, THERA 1 EACH TAB PO SCH (08:12)
[2021-03-13] MEDS: SENNOSIDES-DOCUSATE SODIUM 1 EACH TAB PO SCH ×2 (08:12→21:06)
[2021-03-13] MEDS: PANTOPRAZOLE 40 MG TABLET PO SCH ×2 (08:13→17:44)
[2021-03-13] MEDS: PILOCARPINE 5 MG TAB PO SCH ×3 (08:22→21:06)
[2021-03-13] MEDS: CEVIMELINE 30 MG CAP PO SCH ×3 (08:22→21:06)
[2021-03-13] MEDS: LIDOCAINE 5% PATCH TOPICAL SCH (08:23)
[2021-03-13] MEDS: PSYLLIUM HUSK 100% 6 GM PACKET PO SCH ×2 (08:24→21:06)
[2021-03-13 13:36] VITALS: BMI 24.3
[2021-03-13] MEDS ORDERED: MAGNESIUM CITRATE 296 ML BOTTLE PO ONE (18:01)
--- NOTE | 2021-03-13 18:04 | P.PN ---
Progress Note - Text Progress Note Date: 03/13/21 Chief Complaint: Increasing back pain History of presenting complaint: This is a pleasant 60-year-old patient of Dr. Skelton. Patient's oncologist is Dr. Mcelroy. About 2 years ago patient was diagnosed with tongue cancer. Underwent partial glossectomy with some lymph node removal. It was felt that time all the tumor was removed. Patient had recurrence of his lymph nodes and patient underwent surgery in the neck and several lymph nodes were removed about 6 months ago. Patient subsequently has undergone 2 rounds of chemotherapy. Also received radiation treatment. Right now he is between treatments for the cause being determined. Patient has underlying dysphagia and has difficulty swallowing. Patient been having weight loss and decreased appetite. Patient now presents with worsening low back pain for 2 weeks. Was able to walk. Patient not had a bowel movement for last 2 weeks. Normally able to go every other day. No change in urine pattern. Denies any fever and chills. Patient question was found to be hypercalcemic in the ER, and was given IV pamidronate. Oncology was consulted. Also calcitonin was ordered this morning by oncology. Patient had a PET scan 2 days ago results of which are noted below. Has shown progression of metastatic osseous disease. Admitted with increasing pain in the lower back from metastatic disease. Hypercalcemia. Started on IV steroids, given IV pamidronate and calcitonin. Lidoderm patch. March 13: Today when done for radiation treatment. Pain is a bit better. Did eat some. Advised patient to sit up in a chair. Also order a K pad. Review of systems: Was done for constitutional, cardiovascular, GI, pulmonary. relevant finding as above Active Medications Cevimeline HCl (Cevimeline 30 Mg Cap) 30 mg PO TID [facility] Last Admin: 03/13/21 16:30 Dose: 30 mg Documented by: Clonidine (Clonidine Hcl 0.1 Mg Tab) 0.1 mg PO BID [facility] Last Admin: 03/13/21 08:12 Dose: 0.1 mg Documented by: Dexamethasone Sodium Phosphate (Dexamethasone Sod Phosphate 4 Mg/Ml 1 Ml Vial) 4 mg IV Q8H [facility] Last Admin: 03/13/21 13:06 Dose: 4 mg Documented by: Fentanyl (Fentanyl 100mcg/Hr Patch) 2 patch TRANSDERM Q48H [facility]; Protocol Last Admin: 03/12/21 13:45 Dose: 2 patch Documented by: Hydromorphone HCl (Hydromorphone 1 Mg/Ml 1 Ml Syringe) 1 mg IVP Q3HR PRN PRN Reason: Severe Pain Last Admin: 03/13/21 14:35 Dose: 1 mg Documented by: Sodium Chloride (Saline 0.9%) 1,000 mls @ 130 mls/hr IV .Q7H42M [facility] Last Admin: 03/13/21 17:43 Dose: 130 mls/hr Documented by: Lidocaine (Lidocaine 5% Patch) 3 patch TOPICAL DAILY [facility]; Protocol Last Admin: 03/13/21 08:23 Dose: 1 patch Documented by: Multivitamins (Multivitamins, Thera 1 Each Tab) 1 each PO DAILY [facility] Last Admin: 03/13/21 08:12 Dose: 1 each Documented by: Naloxone HCl (Naloxone 0.4 Mg/Ml 1 Ml Vial) 0.2 mg IV Q2M PRN PRN Reason: Opioid Reversal Ondansetron HCl (Ondansetron 4 Mg/2 Ml Vial) 4 mg IVP Q4H PRN PRN Reason: Nausea And Vomiting Oxycodone HCl (Oxycodone Hcl 5 Mg Tab) 15 - 30 mg PO Q3HR PRN PRN Reason: Pain Last Admin: 03/13/21 13:10 Dose: 20 mg Documented by: Pantoprazole Sodium (Pantoprazole 40 Mg Tablet) 40 mg PO AC-BID [facility] Last Admin: 03/13/21 17:44 Dose: 40 mg Documented by: Pilocarpine HCl (Pilocarpine 5 Mg Tab) 5 mg PO TID [facility] Last Admin: 03/13/21 16:30 Dose: 5 mg Documented by: Polyethylene Glycol (Polyethylene Glycol 3350 17 Gm Powd.Pack) 17 gm PO BID PRN PRN Reason: Constipation Psyllium Hydrophilic Mucilloid (Psyllium Husk 100% 6 Gm Packet) 6 gm PO BID [facility] Last Admin: 03/13/21 08:24 Dose: 6 gm Documented by: Senna/Docusate Sodium (Sennosides-Docusate Sodium 1 Each Tab) 2 each PO BID [facility] Last Admin: 03/13/21 08:12 Dose: 2 each Documented by: Past medical history to include: Hypertension, The Tongue (of the Neck with Chemotherapy and Radiation Treatment and Has Metastatic Disease to the Spine. Patient Has Some Weakness of the Right Shoulder from Surgery. Social History: . Does Not Smoke or Drink Alcohol. 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 EYES: Pupils equal. Conjunctiva pale HEENT: Some facial and neck asymmetry. Partial tongue removed from the right side. NECK: JVD unable to assess; masses not palpable. HEART: First and second heart sounds are normal; no edema. LUNGS: Respiratory rate normal; clear to auscultation. ABDOMEN: Soft, nontender, liver spleen not palpable, no masses palpable. PSYCH: Alert and oriented x3; mood and affect anxiousl. NEUROLOGICAL: Facial and neck asymmetry. Speech is a bit slow. Power and sensation grossly intact. INVESTIGATIONS, reviewed in the clinical context: March 13: WBC 2.2 hemoglobin 7.9 platelets 29 potassium 4.3 creatinine 1.3 calcium 12.2 INR scheduled 7 Reason: NONSPECIFIC FINDINGS White count 3.3 hemoglobin 10.1 platelets 25 sodium 135 potassium 3.9 BUN 20 creatinine 1.44 Glucose 118 calcium 14.7 albumin 3.3 EKG tracing personally reviewed by me-normal sinus rhythm, 74/m PET scan [03/10/2021]: Multiple new hypermetabolic osseous metastatic lesions. Destructive inferior right scapular lesion. Hypermetabolic lesions left scapula. Also inferior sternum. Metabolic septal lactic thoracic lesion T6 level through T8. Some scattered sclerotic lesions throughout the pelvis bilaterally including the left proximal femur. Right lower lateral lip lesion. Assessment and plan: -This is a patient with known malignancy initially starting off in the tongue 2 years ago with partial glossectomy. Sump lymph nodes were removed. Patient has recurrence in about 6 months ago patient's second surgery with removal of several lymph nodes. Patient has received 2 rounds of chemotherapy and radiation treatment. Has known metastatic disease. Patient now presented with increasing lumbar pain. From metastatic disease. Patient has significant pain medications at home. We will order a lidocaine patch. Heating pad. -Hypercalcemia of malignancy. Also contribution from decreased oral intake. Received IV pamidronate IV calcitonin . IV fluids at 130 mL's an hour. 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 -Essential hypertension Given chronic kidney disease, with MIKEY Carroll . Catapres 0.1 mg twice a day started -Pancytopenia, likely from chemotherapy Follow CBC -Acute on chronic pain from metastatic disease of the lower lumbar spine. Continue with fentanyl. Lidoderm patch. Oxycodone when necessary. K-pad -Chronic constipation with acute exacerbation from narcotics Did not respond to soapsuds. We'll give mag citrate. And milk of molasses followed by that. If needed -Chronic kidney disease, stage III Patient's creatinine was 1.75 in September of this year. Renal ultrasound: Nonspecific -Mild protein calorie malnutrition from decreased oral intake from underlying malignancy. Add ensure Patient to sit up on a chair as tolerated. Continued current medication treatment plan. Magnesium citrate. Milk of molasses
[2021-03-13 21:34] LABS: Appearance,Urine Clear (Clear); Bilirubin,Urine Negative (Negative); Blood,Urine Negative (Negative); Color,Urine Light Yellow; Glucose,Urine (UA) Negative (Negative); Ketones,Urine Negative (Negative); Leukocyte Esterase,Urine Negative (Negative); Nitrite,Urine Negative (Negative); Protein,Urine Negative (Negative); Urobilinogen,Urine <2.0 mg/dL (<2.0)
[2021-03-13] MEDS ORDERED: LIDOCAINE 5% PATCH TOPICAL ONE (23:59)
[2021-03-14] MEDS: DEXAMETHASONE SOD PHOSPHATE 4 MG/ML 1 ML VIAL IV SCH ×3 (04:48→19:27)
[2021-03-14] MEDS: SODIUM CHLORIDE 0.9% 1,000 ML IV SCH ×2 (05:08→16:44)
[2021-03-14] MEDS: HYDROmorphone 1 MG/ML 1 ML SYRINGE IVP PRN ×2 (05:25→09:24)
[2021-03-14 06:25] LABS: African American GFR (CKD) 74 (>60 ml/min/1.73 sqM); Anion Gap 2 mmol/L; Blood Urea Nitrogen 25 mg/dL (9-20); Calcium 11.8 mg/dL (8.4-10.2); Carbon Dioxide 32 mmol/L (22-30); Chloride 102 mmol/L (98-107); Glucose 107 mg/dL (74-99); Non-African American GFR(CKD) 64 (>60 ml/min/1.73 sqM); Potassium 3.6 mmol/L (3.5-5.1); Sodium 136 mmol/L (137-145)
--- NOTE | 2021-03-14 06:55 | P.CONS ---
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 He underwent resection with right neck dissection and initially no adjuvant therapy. However, he was subsequently found to have significant regional failure with bilateral adenopathy, 18 of 26 lymph nodes on the right, and 6 of 26 on the left, both showing extranodal extension in various areas. At the time of starting his radiotherapy he was found to have persistent gross disease in the right neck- parotid area. He underwent concurrent chemoradiation finishing on 09/11/2020. Unfortunately, the patient was found to have distant disease within a few months of finishing this therapy. In January, he initiated on chemoimmunotherapy which he just finished 2 weeks ago. His most recent PET scan revealed progression of o sseous disease. The patient reports that over the past 2-3 weeks he has developed increasing back pain in the upper mid back. He states this is predominantly between the shoulder blades. He also has had some pain in his right shoulder. The back pain has been up to 10 out of 10 despite the patient's treatment with fentanyl and Percocet. His right shoulder pain has been a little less severe. He underwent a PET/CT on March 06 which revealed a mixed response to his recent chemotherapy. Unfortunately, he had multiple new areas of osseous disease including the right scapula, thoracic spine at T6 and 8, left sacrum and left proximal femur. There was some improvement appreciated in his mediastinal and hilar adenopathy. The patient reports that his pain has been under better control in the hospital, but he has been requiring Dilaudid every 3 hours. We have been consult to discuss palliative radiotherapy to his painful sites of bony metastasis. Review of Systems Constitutional: Denies chills, Denies fever Eyes: denies blurred vision Ears, nose, mouth and throat: Reports ant. neck pain, Reports neck lump Cardiovascular: Denies chest pain Respiratory: Denies cough Gastrointestinal: Denies abdominal pain, Denies bloating Genitourinary: Denies flank pain Musculoskeletal: Denies muscle weakness Integumentary: Denies pruritus, Denies rash Neurological: Denies aphasia, Denies ataxia, Denies confusion Psychiatric: Denies anxiety 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 and mouth), last chemo 4 months ago, last radiation 09/04/2020. mets to back. History of Any Multi-Drug Resistant Organisms: None Reported Past Surgical History: Orthopedic Surgery Additional Past Surgical History / Comment(s): 06/06/2019-surgery on tongue to remove cancer and removal of lympth nodes in throat, ben wrist carpal tunnel Past Anesthesia/Blood Transfusion Reactions: No Reported Reaction Additional Past Anesthesia/Blood Transfusion Reaction / Comm: states he has some paralysis of rt shoulder and mouth after cancer surgery but states no diff with intubation Past Psychological History: No Psychological Hx Reported Smoking Status: Never smoker Past Alcohol Use History: None Reported Past Drug Use History: None Reported - Past Family History Mother Family Medical History: Cancer Medications and Allergies Home Medications Medication Instructions Recorded Confirmed Type Cevimeline [Evoxac] 30 mg PO TID 12/31/20 03/12/21 History Losartan Potassium [Cozaar] 100 mg PO DAILY 12/31/20 03/12/21 History Multivitamins, Thera [Multivitamin 1 tab PO DAILY 12/31/20 03/12/21 History (formulary)] Pilocarpine [Salagen] 5 mg PO TID 03/12/21 03/12/21 History Polyethylene Glycol 3350 [Miralax] 17 gm PO BID PRN 03/12/21 03/12/21 History Sennosides/Docusate Sodium [Senna 2 cap PO HS 03/12/21 03/12/21 History Plus 8.6-50 mg Softgel] fentaNYL 100MCG/HR PATCH 1 patch TRANSDERM Q48H 03/12/21 03/12/21 History [Duragesic 100MCG/HR] fentaNYL 25MCG/HR PATCH [Duragesic 2 patch TRANSDERM Q48H 03/12/21 03/12/21 History 25MCG/HR] oxyCODONE HCL [oxyCODONE HCL (IR)] 15 - 30 mg PO Q6H PRN 03/12/21 03/12/21 History Allergies Allergy/AdvReac Type Severity Reaction Status Date / Time No Known Allergies Allergy Verified 03/12/21 08:26 Physical Exam Vitals: Vital Signs Temp Pulse Resp BP Pulse Ox 03/14/21 05:00 98.0 F 66 18 116/74 98 03/13/21 19:48 98.4 F 72 16 138/82 100 03/13/21 14:02 98.7 F 62 17 120/72 93 L Intake and Output 03/13/21 03/13/21 03/14/21 14:59 22:59 06:59 Intake Total 780 Balance 780 Intake: Intake, IV Titration 780 Amount Sodium Chloride 0.9% 1, 780 000 ml @ 75 mls/hr IV . [id number] [facility] Rx#:[id number] Other: # Voids 3 Weight 77.111 kg - Constitutional General appearance: disheveled, no acute distress - EENT Eyes: EOMI, PERRLA ENT: hearing grossly normal - Neck Neck: lymphadenopathy (right neck cutaneous lesion noted) - Respiratory Respiratory: bilateral: CTA - Cardiovascular Rhythm: regular - Gastrointestinal General gastrointestinal: no distended, no hepatomegaly - Integumentary Integumentary: pale - Neurologic Neurologic: CNII-XII intact - Musculoskeletal Musculoskeletal: strength equal bilaterally - Psychiatric Psychiatric: A&O x's 3, appropriate affect Results CBC & Chem 7: 03/13/21 06:02 03/14/21 05:31 Labs: Abnormal Lab Results - Last 24 Hours (Table) 03/13/21 03/13/21 03/14/21 Range/Units 06:02 06:02 05:31 WBC 2.2 L (3.8-10.6) k/uL RBC 2.29 L (4.30-5.90) m/uL Hgb 7.9 L D (13.0-17.5) gm/dL Hct 21.8 L (39.0-53.0) % RDW 18.2 H (11.5-15.5) % Plt Count 29 L (150-450) k/uL Lymphocytes # 0.4 L (1.0-4.8) k/uL Sodium 136 L 136 L (137-145) mmol/L Carbon Dioxide 32 H (22-30) mmol/L BUN 25 H (9-20) mg/dL Creatinine 1.30 H (0.66-1.25) mg/dL Glucose 153 H 107 H (74-99) mg/dL Calcium 12.2 H 11.8 H (8.4-10.2) mg/dL Ionized Calcium Gisela 7.0 H* (4.5-5.3) mg/dL Phosphorus 2.3 L (2.5-4.5) mg/dL Magnesium 1.2 L (1.6-2.3) mg/dL Total Protein 5.7 L (6.3-8.2) g/dL Albumin 2.9 L (3.5-5.0) g/dL Assessment and Plan Assessment: The patient 60-year-old male initially diagnosed with a stage II (pT2, pN0, 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 He underwent resection with right neck dissection and initially no adjuvant therapy. However, he was subsequently found to have significant regional failure with bilateral adenopathy, 18 of 26 lymph nodes on the right, and 6 of 26 on the left, both showing extranodal extension in various areas. At the time of starting his radiotherapy he was found to have persistent gross disease in the right neck- parotid area. He underwent concurrent chemoradiation finishing on 09/11/2020. Unfortunately, the patient was found to have distant disease within a few months of finishing this therapy. In January, he initiated on chemoimmunotherapy which he just finished 2 weeks ago. His most recent PET scan revealed progression of osseous disease. Plan: 1. Back pain: Considering the new onset and location, this highly correlates with the patient's recently discovered bone metastasis involving the upper thoracic spine at T6 and 8. The patient's T6 vertebral body appears to have some height loss based on our recent imaging. I discussed with the patient that I would recommend a palliative course of radiotherapy to the upper thoracic spine. As the patient's right shoulder is also painful, we will address the right scapula metastasis as well. I explained that he would first undergo CT simulation for treatment planning. I discussed possible side effects of this treatment which includes, but is not limited to; fatigue, skin irritation, dysp hagia, odynophagia and low risk of long-term toxicity. I explained to the patient that it sometimes takes 1-2 weeks for the full benefit of palliative radiotherapy for pain relief. I explained the importance of having adequate pain control during that interval. The patient will undergo his first treatment to the thoracic spine today (03/13/21) due to his severe pain. 2. Metastatic head/neck cancer: The patient recently finished 2-3 cycles of Carbo/5FU/Keytruda under the care of Dr. Nieves. Unfortunately, he appears to have progressed on this regimen. He has discussed the possible clinical trials with Raza Solorzano, and he understands he will likely need to change systemic therapy in the near future. Time with Patient: Greater than 30
[2021-03-14] MEDS: cloNIDine HCL 0.1 MG TAB PO SCH ×2 (09:20→20:24)
[2021-03-14] MEDS: MULTIVITAMINS, THERA 1 EACH TAB PO SCH (09:20)
[2021-03-14] MEDS: PANTOPRAZOLE 40 MG TABLET PO SCH ×2 (09:20→16:41)
[2021-03-14] MEDS: SENNOSIDES-DOCUSATE SODIUM 1 EACH TAB PO SCH ×2 (09:23→20:24)
[2021-03-14] MEDS: PSYLLIUM HUSK 100% 6 GM PACKET PO SCH ×2 (09:23→20:24)
[2021-03-14] MEDS: LIDOCAINE 5% PATCH TOPICAL SCH (09:30)
[2021-03-14] MEDS: PILOCARPINE 5 MG TAB PO SCH ×3 (09:36→20:24)
[2021-03-14] MEDS: CEVIMELINE 30 MG CAP PO SCH ×3 (09:36→20:24)
--- NOTE | 2021-03-14 13:58 | P.PN ---
Progress Note - Text Progress Note Date: 03/14/21 Chief Complaint: Increasing back pain History of presenting complaint: This is a pleasant 60-year-old patient of Dr. Skelton. Patient's oncologist is Dr. Mcelroy. About 2 years ago patient was diagnosed with tongue cancer. Underwent partial glossectomy with some lymph node removal. It was felt that time all the tumor was removed. Patient had recurrence of his lymph nodes and patient underwent surgery in the neck and several lymph nodes were removed about 6 months ago. Patient subsequently has undergone 2 rounds of chemotherapy. Also received radiation treatment. Right now he is between treatments for the cause being determined. Patient has underlying dysphagia and has difficulty swallowing. Patient been having weight loss and decreased appetite. Patient now presents with worsening low back pain for 2 weeks. Was able to walk. Patient not had a bowel movement for last 2 weeks. Normally able to go every other day. No change in urine pattern. Denies any fever and chills. Patient question was found to be hypercalcemic in the ER, and was given IV pamidronate. Oncology was consulted. Also calcitonin was ordered this morning by oncology. Patient had a PET scan 2 days ago results of which are noted below. Has shown progression of metastatic osseous disease. Admitted with increasing pain in the lower back from metastatic disease. Hypercalcemia. Started on IV steroids, given IV pamidronate and calcitonin. Lidoderm patch. March 13: Today when done for radiation treatment. Pain is a bit better. Did eat some. Advised patient to sit up in a chair. Also order a K pad. March 14: Pain present. During for radiation treatment this afternoon. No other new issues. Eating about 25-50% Review of systems: Was done for constitutional, cardiovascular, GI, pulmonary. relevant finding as above Active Medications Cevimeline HCl (Cevimeline 30 Mg Cap) 30 mg PO TID [facility] Last Admin: 03/14/21 09:36 Dose: 30 mg Documented by: Clonidine (Clonidine Hcl 0.1 Mg Tab) 0.1 mg PO BID [facility] Last Admin: 03/14/21 09:20 Dose: 0.1 mg Documented by: Dexamethasone Sodium Phosphate (Dexamethasone Sod Phosphate 4 Mg/Ml 1 Ml Vial) 4 mg IV Q8H [facility] Last Admin: 03/14/21 11:16 Dose: 4 mg Documented by: Fentanyl (Fentanyl 100mcg/Hr Patch) 2 patch TRANSDERM Q48H [facility]; Protocol Last Admin: 03/14/21 11:12 Dose: 2 patch Documented by: Hydromorphone HCl (Hydromorphone 1 Mg/Ml 1 Ml Syringe) 1 mg IVP Q3HR PRN PRN Reason: Severe Pain Last Admin: 03/14/21 09:24 Dose: 1 mg Documented by: Sodium Chloride (Saline 0.9%) 1,000 mls @ 75 mls/hr IV .[id number] [facility] Last Admin: 03/14/21 05:08 Dose: 75 mls/hr Documented by: Lidocaine (Lidocaine 5% Patch) 3 patch TOPICAL DAILY [facility]; Protocol Last Admin: 03/14/21 09:30 Dose: Not Given Documented by: Multivitamins (Multivitamins, Thera 1 Each Tab) 1 each PO DAILY [facility] Last Admin: 03/14/21 09:20 Dose: 1 each Documented by: Naloxone HCl (Naloxone 0.4 Mg/Ml 1 Ml Vial) 0.2 mg IV Q2M PRN PRN Reason: Opioid Reversal Ondansetron HCl (Ondansetron 4 Mg/2 Ml Vial) 4 mg IVP Q4H PRN PRN Reason: Nausea And Vomiting Oxycodone HCl (Oxycodone Hcl 5 Mg Tab) 15 - 30 mg PO Q3HR PRN PRN Reason: Pain Last Admin: 03/14/21 05:24 Dose: 20 mg Documented by: Pantoprazole Sodium (Pantoprazole 40 Mg Tablet) 40 mg PO AC-BID [facility] Last Admin: 03/14/21 09:20 Dose: 40 mg Documented by: Pilocarpine HCl (Pilocarpine 5 Mg Tab) 5 mg PO TID [facility] Last Admin: 03/14/21 09:36 Dose: 5 mg Documented by: Polyethylene Glycol (Polyethylene Glycol 3350 17 Gm Powd.Pack) 17 gm PO BID PRN PRN Reason: Constipation Psyllium Hydrophilic Mucilloid (Psyllium Husk 100% 6 Gm Packet) 6 gm PO BID [facility] Last Admin: 03/14/21 09:23 Dose: 6 gm Documented by: Senna/Docusate Sodium (Sennosides-Docusate Sodium 1 Each Tab) 2 each PO BID [facility] Last Admin: 03/14/21 09:23 Dose: 2 each Documented by: Past medical history to include: Hypertension, The Tongue (of the Neck with Chemotherapy and Radiation Treatment and Has Metastatic Disease to the Spine. Patient Has Some Weakness of the Right Shoulder from Surgery. Social History: . Does Not Smoke or Drink Alcohol. 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 Family History: Cancer Physical examination: VITAL SIGNS: 97.9, 63, 18, 120/71, 100% room air GENERAL: Reclining in bed, tired. EYES: Pupils equal. Conjunctiva pale HEENT: Some facial and neck asymmetry. Partial tongue removed from the right side. NECK: JVD unable to assess; masses not palpable. HEART: First and second heart sounds are normal; no edema. LUNGS: Respiratory rate normal; clear to auscultation. ABDOMEN: Soft, nontender, liver spleen not palpable, no masses palpable. PSYCH: Alert and oriented x3; mood and affect anxiousl. NEUROLOGICAL: Facial and neck asymmetry. Speech is a bit slow. Power and sensation grossly intact. INVESTIGATIONS, reviewed in the clinical context: March 14: Potassium 3.6 creatinine 1.21 calcium 11.8 March 13: WBC 2.2 hemoglobin 7.9 platelets 29 potassium 4.3 creatinine 1.3 calcium 12.2 INR scheduled 7 Reason: NONSPECIFIC FINDINGS White count 3.3 hemoglobin 10.1 platelets 25 sodium 135 potassium 3.9 BUN 20 creatinine 1.44 Glucose 118 calcium 14.7 albumin 3.3 EKG tracing personally reviewed by me-normal sinus rhythm, 74/m PET scan [03/10/2021]: Multiple new hypermetabolic osseous metastatic lesions. Destructive inferior right scapular lesion. Hypermetabolic lesions left scapula. Also inferior sternum. Metabolic septal lactic thoracic lesion T6 level through T8. Some scattered sclerotic lesions throughout the pelvis bilaterally including the left proximal femur. Right lower lateral lip lesion. 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 Regional extension into bilateral lymph nodes. He underwent concurrent cy moradiation in September 2020.. Subsequently had metastatic disease in January of this year underwent chemo- immunotherapy, which she finished 2 weeks ago. PET scan showed progression of osseous disease. Being followed by oncology -Hypercalcemia of malignancy. Also contribution from decreased oral intake. Received IV pamidronate IV calcitonin . IV fluids at 130 mL's an hour. 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 -Essential hypertension Given chronic kidney disease, with DC Cozaar . Catapres 0.1 mg twice a day started -Pancytopenia, likely from chemotherapy Follow CBC -Acute on chronic pain from metastatic disease of the T6-T8 thoracic spine.. Continue with fentanyl. Lidoderm patch. Oxycodone when necessary. K-pad. Palliative radiation treatment by radiation oncologist. Did discussed with the patient with excessive narcotics. We will use OxyContin when necessary. -Chronic constipation with acute exacerbation from narcotics Did not respond to soapsuds. We'll give mag citrate. And milk of molasses followed by that. If needed -Chronic kidney disease, stage III Patient's creatinine was 1.75 in September of this year. Renal ultrasound: Nonspecific -Mild protein calorie malnutrition from decreased oral intake from underlying malignancy. Add ensure Continue with radiation treatment. Current treatment plan. IV fluids. MIKEY Dilaudid. Use OxyContin as needed.
[2021-03-14] MEDS: HYDROmorphone 0.5 MG/0.5 ML SYRINGE IVP PRN (22:40)
[2021-03-15] MEDS: HYDROmorphone 0.5 MG/0.5 ML SYRINGE IVP PRN ×7 (01:25→23:29)
[2021-03-15] MEDS: DEXAMETHASONE SOD PHOSPHATE 4 MG/ML 1 ML VIAL IV SCH ×3 (04:19→20:09)
[2021-03-15] MEDS: PANTOPRAZOLE 40 MG TABLET PO SCH ×2 (08:49→16:57)
[2021-03-15] MEDS: MULTIVITAMINS, THERA 1 EACH TAB PO SCH (08:49)
[2021-03-15] MEDS: cloNIDine HCL 0.1 MG TAB PO SCH ×2 (08:51→20:09)
[2021-03-15] MEDS: LIDOCAINE 5% PATCH TOPICAL SCH (08:53)
[2021-03-15] MEDS: SODIUM CHLORIDE 0.9% 1,000 ML IV SCH ×2 (08:59→16:58)
[2021-03-15] MEDS: CEVIMELINE 30 MG CAP PO SCH ×3 (08:59→20:09)
[2021-03-15] MEDS: PSYLLIUM HUSK 100% 6 GM PACKET PO SCH ×2 (09:00→20:10)
[2021-03-15] MEDS: SENNOSIDES-DOCUSATE SODIUM 1 EACH TAB PO SCH ×2 (09:00→20:09)
[2021-03-15] MEDS: PILOCARPINE 5 MG TAB PO SCH ×3 (09:00→20:09)
--- NOTE | 2021-03-15 14:12 | P.PN ---
Progress Note - Text Progress Note Date: 03/15/21 Chief Complaint: Increasing back pain History of presenting complaint: This is a pleasant 60-year-old patient of Dr. Skelton. Patient's oncologist is Dr. Mcelroy. About 2 years ago patient was diagnosed with tongue cancer. Underwent partial glossectomy with some lymph node removal. It was felt that time all the tumor was removed. Patient had recurrence of his lymph nodes and patient underwent surgery in the neck and several lymph nodes were removed about 6 months ago. Patient subsequently has undergone 2 rounds of chemotherapy. Also received radiation treatment. Right now he is between treatments for the cause being determined. Patient has underlying dysphagia and has difficulty swallowing. Patient been having weight loss and decreased appetite. Patient now presents with worsening low back pain for 2 weeks. Was able to walk. Patient not had a bowel movement for last 2 weeks. Normally able to go every other day. No change in urine pattern. Denies any fever and chills. Patient question was found to be hypercalcemic in the ER, and was given IV pamidronate. Oncology was consulted. Also calcitonin was ordered this morning by oncology. Patient had a PET scan 2 days ago results of which are noted below. Has shown progression of metastatic osseous disease. Admitted with increasing pain in the lower back from metastatic disease. Hypercalcemia. Started on IV steroids, given IV pamidronate and calcitonin. Lidoderm patch. March 13: Today when done for radiation treatment. Pain is a bit better. Did eat some. Advised patient to sit up in a chair. Also order a K pad. March 14: Pain present. During for radiation treatment this afternoon. No other new issues. Eating about 25-50% March 15: Pain still present. Patient wanting Dilaudid. Getting radiation treatment. Not on the weekend. Oral intake fair. Had a bowel movement. Review of systems: Was done for constitutional, cardiovascular, GI, pulmonary. relevant finding as above Active Medications Cevimeline HCl (Cevimeline 30 Mg Cap) 30 mg PO TID [facility] Last Admin: 03/15/21 08:59 Dose: 30 mg Documented by: Clonidine (Clonidine Hcl 0.1 Mg Tab) 0.1 mg PO BID [facility] Last Admin: 03/15/21 08:51 Dose: 0.1 mg Documented by: Dexamethasone Sodium Phosphate (Dexamethasone Sod Phosphate 4 Mg/Ml 1 Ml Vial) 4 mg IV Q8H [facility] Last Admin: 03/15/21 12:21 Dose: 4 mg Documented by: Fentanyl (Fentanyl 100mcg/Hr Patch) 2 patch TRANSDERM Q48H [facility]; Protocol Last Admin: 03/14/21 11:12 Dose: 2 patch Documented by: Hydromorphone HCl (Hydromorphone 0.5 Mg/0.5 Ml Syringe) 0.5 mg IVP Q3HR PRN PRN Reason: Pain Last Admin: 03/15/21 12:23 Dose: 0.5 mg Documented by: Sodium Chloride (Saline 0.9%) 1,000 mls @ 75 mls/hr IV .[id number] Last Admin: 03/15/21 08:59 Dose: 75 mls/hr Documented by: Pamidronate Disodium 30 mg/ (Sodium Chloride) 250 mls @ 83 mls/hr IV .Q3H1M ONE Stop: 03/15/21 17:30 Lidocaine (Lidocaine 5% Patch) 3 patch TOPICAL DAILY [facility]; Protocol Last Admin: 03/15/21 08:53 Dose: Not Given Documented by: Multivitamins (Multivitamins, Thera 1 Each Tab) 1 each PO DAILY [facility] Last Admin: 03/15/21 08:49 Dose: 1 each Documented by: Naloxone HCl (Naloxone 0.4 Mg/Ml 1 Ml Vial) 0.2 mg IV Q2M PRN PRN Reason: Opioid Reversal Ondansetron HCl (Ondansetron 4 Mg/2 Ml Vial) 4 mg IVP Q4H PRN PRN Reason: Nausea And Vomiting Oxycodone HCl (Oxycodone Hcl 5 Mg Tab) 15 - 30 mg PO Q3HR PRN PRN Reason: Pain Last Admin: 03/15/21 12:21 Dose: 30 mg Documented by: Pantoprazole Sodium (Pantoprazole 40 Mg Tablet) 40 mg PO AC-BID [facility] Last Admin: 03/15/21 08:49 Dose: 40 mg Documented by: Pilocarpine HCl (Pilocarpine 5 Mg Tab) 5 mg PO TID [facility] Last Admin: 03/15/21 09:00 Dose: 5 mg Documented by: Polyethylene Glycol (Polyethylene Glycol 3350 17 Gm Powd.Pack) 17 gm PO BID PRN PRN Reason: Constipation Psyllium Hydrophilic Mucilloid (Psyllium Husk 100% 6 Gm Packet) 6 gm PO BID [facility] Last Admin: 03/15/21 09:00 Dose: Not Given Documented by: Senna/Docusate Sodium (Sennosides-Docusate Sodium 1 Each Tab) 2 each PO BID [facility] Last Admin: 03/15/21 09:00 Dose: Not Given Documented by: Past medical history to include: Hypertension, The Tongue (of the Neck with Chemotherapy and Radiation Treatment and Has Metastatic Disease to the Spine. Patient Has Some Weakness of the Right Shoulder from Surgery. Social History: . Does Not Smoke or Drink Alcohol. 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 Family History: Cancer Physical examination: VITAL SIGNS: On 1, 61, 16, 114/63, 96% room air GENERAL: Sitting up in a chair, eating lunch EYES: Pupils equal. Conjunctiva pale HEENT: Some facial and neck asymmetry. Partial tongue removed from the right side. NECK: JVD unable to assess; masses not palpable. HEART: First and second heart sounds are normal; no edema. LUNGS: Respiratory rate normal; clear to auscultation. ABDOMEN: Soft, nontender, liver spleen not palpable, no masses palpable. PSYCH: Alert and oriented x3; mood and affect anxious. NEUROLOGICAL: Facial and neck asymmetry. Speech is a bit slow. Power and sensation grossly intact. INVESTIGATIONS, reviewed in the clinical context: March 14: Potassium 3.6 creatinine 1.21 calcium 11.8 March 13: WBC 2.2 hemoglobin 7.9 platelets 29 potassium 4.3 creatinine 1.3 calcium 12.2 INR scheduled 7 Reason: NONSPECIFIC FINDINGS White count 3.3 hemoglobin 10.1 platelets 25 sodium 135 potassium 3.9 BUN 20 creatinine 1.44 Glucose 118 calcium 14.7 albumin 3.3 EKG tracing personally reviewed by me-normal sinus rhythm, 74/m PET scan [03/10/2021]: Multiple new hypermetabolic osseous metastatic lesions. Destructive inferior right scapular lesion. Hypermetabolic lesions left scapula. Also inferior sternum. Metabolic septal lactic thoracic lesion T6 level through T8. Some scattered sclerotic lesions throughout the pelvis bilaterally including the left proximal femur. Right lower lateral lip lesion. 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 Regional extension into bilateral lymph nodes. He underwent concurrent chemoradiation in September 2020.. Subsequently had metastatic disease in January of this year underwent chemo- immunotherapy, which she finished 2 weeks ago. PET scan showed progression of osseous disease. Being followed by oncology -Hypercalcemia of malignancy. Also contribution from decreased oral intake. Received IV pamidronate and IV calcitonin . IV fluids at 130 mL's an hour. 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 -Essential hypertension Given chronic kidney disease, with DC Cozaar . Catapres 0.1 mg twice a day started -Pancytopenia, likely from chemotherapy Follow CBC -Acute on chronic pain from metastatic disease of the T6-T8 thoracic spine.. Continue with fentanyl. Lidoderm patch. Oxycodone when necessary. K-pad. Palliative radiation treatment by radiation oncologist. Did discussed with the patient with excessive narcotics. We will use OxyContin when necessary. IV Dilaudid when necessary -Chronic constipation with acute exacerbation from narcotics Responded to laxatives -Chronic kidney disease, stage 2 Patient's creatinine was 1.75 in September of this year. Renal ultrasound: Nonspecific -Mild protein calorie malnutrition from decreased oral intake from underlying malignancy. Add ensure Pros and cause of narcotic is discussed with the patient. Given that is in rat her hefty dose. Continue his radiation treatment. Other medications to continue.
[2021-03-15] MEDS ORDERED: SODIUM CHLORIDE 0.9% 250 ML with PAMIDRONATE 30 MG IV ONE ×2 (14:30)
[2021-03-16] MEDS: DEXAMETHASONE SOD PHOSPHATE 4 MG/ML 1 ML VIAL IV SCH ×2 (03:23→12:54)
[2021-03-16] MEDS: HYDROmorphone 0.5 MG/0.5 ML SYRINGE IVP PRN ×3 (03:23→11:11)
[2021-03-16] MEDS: LIDOCAINE 5% PATCH TOPICAL SCH (09:10)
[2021-03-16] MEDS: PSYLLIUM HUSK 100% 6 GM PACKET PO SCH ×2 (09:17→21:26)
[2021-03-16] MEDS: SENNOSIDES-DOCUSATE SODIUM 1 EACH TAB PO SCH ×2 (09:17→21:25)
[2021-03-16] MEDS: CEVIMELINE 30 MG CAP PO SCH ×3 (09:17→21:26)
[2021-03-16] MEDS: PANTOPRAZOLE 40 MG TABLET PO SCH ×2 (09:17→17:34)
[2021-03-16] MEDS: cloNIDine HCL 0.1 MG TAB PO SCH ×2 (09:17→21:26)
[2021-03-16] MEDS: MULTIVITAMINS, THERA 1 EACH TAB PO SCH (09:17)
[2021-03-16] MEDS: PILOCARPINE 5 MG TAB PO SCH ×3 (09:17→21:25)
[2021-03-16 10:49] LABS: Anisocytosis Slight; Basophils % (A) 0 %; Eosinophils % (A) 0 %; HCT 23.6 % (39.0-53.0); HGB 8.4 gm/dL (13.0-17.5); Lymphocytes # (A) 0.4 k/uL (1.0-4.8); Lymphocytes % (A) 9 %; MCH 34.7 pg (25.0-35.0); MCHC 35.5 g/dL (31.0-37.0); MCV 97.9 fL (80.0-100.0); Macrocytosis Slight; Mean Platelet Volume 10.1; Monocytes # (A) 0.1 k/uL (0-1.0); Monocytes % (A) 2 %; Neutrophils # (A) 4.2 k/uL (1.3-7.7); Neutrophils % (A) 89 %; Poikilocytosis Slight; RBC 2.41 m/uL (4.30-5.90); RDW 18.4 % (11.5-15.5); WBC 4.7 k/uL (3.8-10.6)
[2021-03-16 10:51] LABS: Platelet Count 64 k/uL (150-450)
[2021-03-16 11:28] LABS: ALT 23 U/L (4-49); AST 28 U/L (17-59); African American GFR (CKD) >90 (>60 ml/min/1.73 sqM); Albumin 2.7 g/dL (3.5-5.0); Alkaline Phosphatase 95 U/L (38-126); Anion Gap 6 mmol/L; Blood Urea Nitrogen 28 mg/dL (9-20); Calcium 9.6 mg/dL (8.4-10.2); Carbon Dioxide 27 mmol/L (22-30); Chloride 98 mmol/L (98-107); Globulin 2.6 g/dL; Glucose 197 mg/dL (74-99); Non-African American GFR(CKD) 79 (>60 ml/min/1.73 sqM); Potassium 4.2 mmol/L (3.5-5.1); Sodium 131 mmol/L (137-145); Total Bilirubin 0.4 mg/dL (0.2-1.3); Total Protein 5.3 g/dL (6.3-8.2)
--- NOTE | 2021-03-16 12:20 | P.PN ---
Subjective Progress Note Date: 03/16/21 The patient states that his pain control is fairly satisfactory while laying in bed. He does have increased pain in the mid back and upper abdomen when he bears weight. However he states that he is able to function in this situation by taking his breakthrough pain medication. He is keen on going home. He denied any nausea or vomiting. Objective - Vital Signs Vital signs: Vital Signs Temp 97.9 F 03/16/21 04:45 Pulse 60 03/16/21 04:45 Resp 20 03/16/21 04:45 BP 137/82 03/16/21 04:45 Pulse Ox 98 03/16/21 04:45 Intake & Output 03/15/21 03/16/21 03/16/21 18:59 06:59 18:59 Intake Total 240 600 Output Total 400 Balance -160 600 Intake: Oral 240 600 Output: Urine 400 Other: # Voids 3 2 - Constitutional General appearance: Present: no acute distress - EENT EENT Comment(s): Ulcerating tumor right mandible area Eyes: Present: EOMI ENT: Present: hearing grossly normal, normal oropharynx - Respiratory Respiratory: bilateral: CTA - Cardiovascular Rhythm: regular Heart sounds: normal: S1, S2 - Gastrointestinal General gastrointestinal: Present: soft - Integumentary Integumentary Comment(s): Erythema and ulceration associated with mass right mandible area - Neurologic Neurologic: Present: CNII-XII intact - Musculoskeletal Musculoskeletal: Present: generalized weakness, strength equal bilaterally - Psychiatric Psychiatric: Present: A&O x's 3, appropriate affect - Labs CBC & Chem 7: 03/16/21 09:28 03/16/21 09:28 Labs: Abnormal Lab Results - Last 24 Hours (Table) 03/16/21 03/16/21 Range/Units 09:28 09:28 RBC 2.41 L (4.30-5.90) m/uL Hgb 8.4 L (13.0-17.5) gm/dL Hct 23.6 L (39.0-53.0) % RDW 18.4 H (11.5-15.5) % Plt Count 64 L D (150-450) k/uL Lymphocytes # 0.4 L (1.0-4.8) k/uL Sodium 131 L (137-145) mmol/L BUN 28 H (9-20) mg/dL Glucose 197 H (74-99) mg/dL Total Protein 5.3 L (6.3-8.2) g/dL Albumin 2.7 L (3.5-5.0) g/dL Assessment and Plan (1) Pain, neoplasm-related Narrative/Plan: The patient reports reasonable pain control with his current regimen even with ambulation. He has been started on Radiation, which will resume today. He is also saved pamidronate with an additional dose given yesterday. - Patient is keen on going home. Changes steroids to by mouth with taper over the next 2 weeks, as he completes his radiation - Continue fentanyl 200 g, and OxyIR. - He will be placed on IV bisphosphonate or Xgeva as an outpt Current Visit: Yes Status: Acute Code(s): G89.3 - NEOPLASM RELATED PAIN (ACUTE) (CHRONIC) SNOMED Code(s): 97156700293397 (2) Head and neck cancer Narrative/Plan: The patient has progressive disease as noted in the initial consult. He will need to follow-up as an outpatient to discuss options for systemic therapy, after completion of radiation Current Visit: No Status: Acute Code(s): C76.0 - MALIGNANT NEOPLASM OF HEAD, FACE AND NECK SNOMED Code(s): 385684751 (3) Hypercalcemia Narrative/Plan: Malignant. This has improved with IV hydration and pamidronate as well as calcitonin. Additional dose of pamidronate given yesterday for a total of 60 mg. Check levels today. Patient will need to continue either IV bisphosphonate or Xgeva outpatient Current Visit: Yes Status: Acute Code(s): E83.52 - HYPERCALCEMIA SNOMED Code(s): 11964001
[2021-03-16] MEDS: SODIUM CHLORIDE 0.9% 1,000 ML IV SCH ×2 (12:38→19:25)
[2021-03-16] MEDS: dexAMETHasone 4 MG TAB PO SCH ×2 (12:38→21:25)
--- NOTE | 2021-03-16 16:21 | P.PN ---
Progress Note - Text Progress Note Date: 03/16/21 Chief Complaint: Increasing back pain History of presenting complaint: This is a pleasant 60-year-old patient of Dr. Skelton. Patient's oncologist is Dr. Mcelroy. About 2 years ago patient was diagnosed with tongue cancer. Underwent partial glossectomy with some lymph node removal. It was felt that time all the tumor was removed. Patient had recurrence of his lymph nodes and patient underwent surgery in the neck and several lymph nodes were removed about 6 months ago. Patient subsequently has undergone 2 rounds of chemotherapy. Also received radiation treatment. Right now he is between treatments for the cause being determined. Patient has underlying dysphagia and has difficulty swallowing. Patient been having weight loss and decreased appetite. Patient now presents with worsening low back pain for 2 weeks. Was able to walk. Patient not had a bowel movement for last 2 weeks. Normally able to go every other day. No change in urine pattern. Denies any fever and chills. Patient question was found to be hypercalcemic in the ER, and was given IV pamidronate. Oncology was consulted. Also calcitonin was ordered this morning by oncology. Patient had a PET scan 2 days ago results of which are noted below. Has shown progression of metastatic osseous disease. Admitted with increasing pain in the lower back from metastatic disease. Hypercalcemia. Started on IV steroids, given IV pamidronate and calcitonin. Lidoderm patch. March 13: Today when done for radiation treatment. Pain is a bit better. Did eat some. Advised patient to sit up in a chair. Also order a K pad. March 14: Pain present. During for radiation treatment this afternoon. No other new issues. Eating about 25-50% March 15: Pain still present. Patient wanting Dilaudid. Getting radiation treatment. Not on the weekend. Oral intake fair. Had a bowel movement. March 16: Still getting Dilaudid. Had a lengthy talk with patient regarding his narcotics pain medications and IV Dilaudid. He is keen to go home. Have decided to proceed with increasing the Dilaudid for right now. We will get a pain management consultation. Also spoke to Dr. Aleksander Solares from radiation oncology. Radiation treatment for pain management will take a few days to kick in. Review of systems: Was done for constitutional, cardiovascular, GI, pulmonary. relevant finding as above Active Medications Cevimeline HCl (Cevimeline 30 Mg Cap) 30 mg PO TID [facility] Last Admin: 03/16/21 15:30 Dose: 30 mg Documented by: Clonidine (Clonidine Hcl 0.1 Mg Tab) 0.1 mg PO BID [facility] Last Admin: 03/16/21 09:17 Dose: 0.1 mg Documented by: Dexamethasone (Dexamethasone 4 Mg Tab) 4 mg PO BID [facility] Last Admin: 03/16/21 12:38 Dose: 4 mg Documented by: Fentanyl (Fentanyl 100mcg/Hr Patch) 2 patch TRANSDERM Q48H [facility]; Protocol Last Admin: 03/16/21 12:39 Dose: 2 patch Documented by: Sodium Chloride (Saline 0.9%) 1,000 mls @ 75 mls/hr IV .[id number] [facility] Last Admin: 03/16/21 12:38 Dose: 75 mls/hr Documented by: Lidocaine (Lidocaine 5% Patch) 3 patch TOPICAL DAILY [facility]; Protocol Last Admin: 03/16/21 09:10 Dose: Not Given Documented by: Multivitamins (Multivitamins, Thera 1 Each Tab) 1 each PO DAILY [facility] Last Admin: 03/16/21 09:17 Dose: 1 each Documented by: Naloxone HCl (Naloxone 0.4 Mg/Ml 1 Ml Vial) 0.2 mg IV Q2M PRN PRN Reason: Opioid Reversal Ondansetron HCl (Ondansetron 4 Mg/2 Ml Vial) 4 mg IVP Q4H PRN PRN Reason: Nausea And Vomiting Oxycodone HCl (Oxycodone Hcl 5 Mg Tab) 15 - 30 mg PO Q3HR PRN PRN Reason: Pain Last Admin: 03/16/21 15:30 Dose: 30 mg Documented by: Pantoprazole Sodium (Pantoprazole 40 Mg Tablet) 40 mg PO AC-BID [facility] Last Admin: 03/16/21 09:17 Dose: 40 mg Documented by: Pilocarpine HCl (Pilocarpine 5 Mg Tab) 5 mg PO TID [facility] Last Admin: 03/16/21 15:30 Dose: 5 mg Documented by: Polyethylene Glycol (Polyethylene Glycol 3350 17 Gm Powd.Pack) 17 gm PO BID PRN PRN Reason: Constipation Psyllium Hydrophilic Mucilloid (Psyllium Husk 100% 6 Gm Packet) 6 gm PO BID [facility] Last Admin: 03/16/21 09:17 Dose: 6 gm Documented by: Senna/Docusate Sodium (Sennosides-Docusate Sodium 1 Each Tab) 2 each PO BID [facility] Last Admin: 03/16/21 09:17 Dose: 2 each Documented by: Past medical history to include: Hypertension, The Tongue (of the Neck with Chemotherapy and Radiation Treatment and Has Metastatic Disease to the Spine. Patient Has Some Weakness of the Right Shoulder from Surgery. Social History: . Does Not Smoke or Drink Alcohol. Used To Work As a [employer]. Family History: Cancer Physical examination: VITAL SIGNS: 98.1, 64, 16, 102/59, 96% room air GENERAL: Sitting up in bed, more comfortable EYES: Pupils equal. Conjunctiva pale HEENT: Some facial and neck asymmetry. Partial tongue removed from the right side. NECK: JVD unable to assess; masses not palpable. HEART: First and second heart sounds are normal; no edema. LUNGS: Respiratory rate normal; clear to auscultation. ABDOMEN: Soft, nontender, liver spleen not palpable, no masses palpable. PSYCH: Alert and oriented x3; mood and affect anxious. NEUROLOGICAL: Facial and neck asymmetry. Speech is a bit slow. Power and sensation grossly intact. INVESTIGATIONS, reviewed in the clinical context: March 16: White count 4.7 hemoglobin 8.4 platelets 64 potassium 4.2 creatinine 1.02 March 14: Potassium 3.6 creatinine 1.21 calcium 11.8 March 13: WBC 2.2 hemoglobin 7.9 platelets 29 potassium 4.3 creatinine 1.3 calcium 12.2 INR scheduled 7 Reason: NONSPECIFIC FINDINGS White count 3.3 hemoglobin 10.1 platelets 25 sodium 135 potassium 3.9 BUN 20 creatinine 1.44 Glucose 118 calcium 14.7 albumin 3.3 EKG tracing personally reviewed by me-normal sinus rhythm, 74/m PET scan [03/10/2021]: Multiple new hypermetabolic osseous metastatic lesions. Destructive inferior right scapular lesion. Hypermetabolic lesions left scapula. Also inferior sternum. Metabolic septal lactic thoracic lesion T6 level through T8. Some scattered sclerotic lesions throughout the pelvis ben aterally including the left proximal femur. Right lower lateral lip lesion. 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 Regional extension into bilateral lymph nodes. He underwent concurrent chemoradiation in September 2020.. Subsequently had metastatic disease in January of this year underwent chemo- immunotherapy, which she finished 2 weeks ago. PET scan showed progression of osseous disease. Being followed by oncology -Hypercalcemia of malignancy. Also contribution from decreased oral intake. Received IV pamidronate and IV calcitonin . IV fluids at 130 mL's an hour. 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 -Essential hypertension Given chronic kidney disease, with DC Cozaar . Catapres 0.1 mg twice a day started -Pancytopenia, likely from chemotherapy Follow CBC -Acute on chronic pain from metastatic disease of the T6-T8 thoracic spine.. Continue with fentanyl. Lidoderm patch. Oxycodone when necessary. K-pad. Palliative radiation treatment by radiation oncologist. Did discussed with the patient with excessive narcotics. We will use OxyContin when necessary. IV Dilaudid -DC'd today pain management team consulted -Chronic constipation with acute exacerbation from narcotics Responded to laxatives -Chronic kidney disease, stage 2 Patient's creatinine was 1.75 in September of this year. Renal ultrasound: Nonspecific -Mild protein calorie malnutrition from decreased oral intake from underlying malignancy. Add ensure Discussed with patient at length. Also discussed with Dr. Aleksander Solares from [facility] onc[facility]. Consultation to pain management team. Hopefully discharged today or tomorrow depending on pain management team recommendations.
[2021-03-17] MEDS: SODIUM CHLORIDE 0.9% 1,000 ML IV SCH (04:14)
[2021-03-17] MEDS: CEVIMELINE 30 MG CAP PO SCH (08:40)
[2021-03-17] MEDS: MULTIVITAMINS, THERA 1 EACH TAB PO SCH (08:40)
[2021-03-17] MEDS: PANTOPRAZOLE 40 MG TABLET PO SCH (08:40)
[2021-03-17] MEDS: dexAMETHasone 4 MG TAB PO SCH (08:40)
[2021-03-17] MEDS: SENNOSIDES-DOCUSATE SODIUM 1 EACH TAB PO SCH (08:40)
[2021-03-17] MEDS: cloNIDine HCL 0.1 MG TAB PO SCH (08:41)
[2021-03-17] MEDS: PILOCARPINE 5 MG TAB PO SCH (08:41)
[2021-03-17] MEDS: PSYLLIUM HUSK 100% 6 GM PACKET PO SCH (08:41)
[2021-03-17] MEDS: LIDOCAINE 5% PATCH TOPICAL SCH (08:42)
[2021-03-17] MEDS ORDERED: ALPRAZolam 0.5 MG TAB PO STA (09:12)
--- NOTE | 2021-03-17 11:54 | P.CONS ---
History of Present Illness - Reason for Consult Consult date: 03/17/21 - Chief Complaint Back pain - History of Present Illness This is a 60-year-old gentleman with history of tongue cancer status post resection with metastasis to the thoracic spine. The patient complains of mid back pain which has been getting better. Right now the patient uses 200 mics/hr of fentanyl patches every 72 hours and 20 mg of oxycodone every 4 hours. The patient also has been getting radiation therapy. He failed to respond to NSAIDs before. 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 mets to back. History of Any Multi-Drug Resistant Organisms: None Reported Past Surgical History: Orthopedic Surgery Additional Past Surgical History / Comment(s): 06/06/2019-surgery on tongue to remove cancer and removal of lympth nodes in throat, ben wrist carpal tunnel Past Anesthesia/Blood Transfusion Reactions: No Reported Reaction Additional Past Anesthesia/Blood Transfusion Reaction / Comm: states he has some paralysis of rt shoulder and mouth after cancer surgery but states no diff with intubation Past Psychological History: No Psychological Hx Reported Smoking Status: Never smoker Past Alcohol Use History: None Reported Past Drug Use History: None Reported - Past Family History Mother Family Medical History: Cancer Medications and Allergies Home Medications Medication Instructions Recorded Confirmed Type Cevimeline [Evoxac] 30 mg PO TID 12/31/20 03/12/21 History Losartan Potassium [Cozaar] 100 mg PO DAILY 12/31/20 03/12/21 History Multivitamins, Thera [Multivitamin 1 tab PO DAILY 12/31/20 03/12/21 History (formulary)] Pilocarpine [Salagen] 5 mg PO TID 03/12/21 03/12/21 History Polyethylene Glycol 3350 [Miralax] 17 gm PO BID PRN 03/12/21 03/12/21 History Sennosides/Docusate Sodium [Senna 2 cap PO HS 03/12/21 03/12/21 History Plus 8.6-50 mg Softgel] fentaNYL 100MCG/HR PATCH 1 patch TRANSDERM Q48H 03/12/21 03/12/21 History [Duragesic 100MCG/HR] fentaNYL 25MCG/HR PATCH [Duragesic 2 patch TRANSDERM Q48H 03/12/21 03/12/21 History 25MCG/HR] oxyCODONE HCL [oxyCODONE HCL (IR)] 15 - 30 mg PO Q6H PRN 03/12/21 03/12/21 History Dexamethasone [Decadron] 4 mg PO BID #25 tablet 03/17/21 Rx Allergies Allergy/AdvReac Type Severity Reaction Status Date / Time No Known Allergies Allergy Verified 03/12/21 08:26 Physical Exam Vitals: Vital Signs Temp Pulse Resp BP Pulse Ox 03/17/21 04:00 98.2 F 66 20 146/84 99 03/16/21 19:00 98.1 F 80 20 150/81 95 03/16/21 12:46 98.1 F 64 16 102/59 96 Intake and Output 03/16/21 03/17/21 03/17/21 22:59 06:59 14:59 Intake Total 900 100 Balance 900 100 Intake: Intake, IV Titration 900 Amount Sodium Chloride 0.9% 1, 900 000 ml @ 75 mls/hr IV . [id number] [facility] Rx#:[id number] Oral 100 Other: # Voids 2 - Constitutional General appearance: thin - Neurologic Normal muscle strength in the lower extremities bilaterally Results CBC & Chem 7: 03/16/21 09:28 03/16/21 09:28 Assessment and Plan Plan: This is a 60-year-old gentleman with thoracic spine metastasis from a tongue cancer. The patient's pain has been improving especially after multiple sessi ons of radiotherapy to the thoracic spine. His pain is better now with a total dose of opioids including 200 g an hour or fentanyl patches and 20 mg of oxycodone every 4 hours when necessary breakthrough pain. We will to change the above-mentioned regimen at this point however if pain is getting worse we can go up on the oxycodone to 30 mg every 4 hours when necessary pain. The patient may be a candidate for intrathecal opioid pump in the future. He has thrombocytopenia at this point and no procedures can be done on the spine currently because of that. If the pain continues to be a problem he can follow up with our clinic clinic in the future. I thank you for the consultation
[2021-03-17 12:01] VITALS: BP 97/56; PULSE 62; RESP 18; TEMP 98.1
--- NOTE | 2021-03-17 16:24 | P.PN ---
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 [id number] [facility] Rx#:[id number] Oral 100 Other: # Voids 2 - Constitutional General appearance: Present: average body habitus, cooperative, no acute distress - EENT Eyes: Present: anicteric sclerae, EOMI ENT: Present: hearing grossly normal - Neck Neck: Present: lymphadenopathy - Respiratory Respiratory: bilateral: CTA - Cardiovascular Heart sounds: normal: S1, S2 - Gastrointestinal General gastrointestinal: Present: normal bowel sounds, soft - Musculoskeletal Musculoskeletal: Present: generalized weakness, strength equal bilaterally - Psychiatric Psychiatric: Present: A&O x's 3, appropriate affect, intact judgment & insight - Labs CBC & Chem 7: 03/16/21 09:28 03/16/21 09:28 Assessment and Plan (1) Bone metastases Narrative/Plan: Cont palliative radiation to painful sites. Steroid taper sent to pt Evgeny Dunham Cont rank ligand inhibitor outpt Status: Acute Priority: High Code(s): C79.51 - SECONDARY MALIGNANT NEOPLASM OF BONE SNOMED Code(s): 80542036 (2) Head and neck cancer Narrative/Plan: Pt unfortunately has progressed after very recent completion of 2 line therapy. He will f/u with his Primary Med Onc after finishing XRT. Status: Chronic Priority: High Code(s): C76.0 - MALIGNANT NEOPLASM OF HEAD, FACE AND NECK SNOMED Code(s): 300204516 (3) Hypercalcemia Narrative/Plan: Treated with aredia Status: Resolved Code(s): E83.52 - HYPERCALCEMIA SNOMED Code(s): 38124635 (4) Pain, neoplasm-related Narrative/Plan: Fair control of pain on current regimen. Cont outpt Status: Acute Priority: High Code(s): G89.3 - NEOPLASM RELATED PAIN (ACUTE) (CHRONIC) SNOMED Code(s): 57608167235258
--- NOTE | 2021-03-17 21:05 | P.DS ---
Providers Date of admission: 03/12/21 03:41 Expected date of discharge: 03/17/21 Attending physician: Wesly Kim Consults: 03/12/21 02:28 Consult Physician Urgent Consulting Provider: Sharon Nieves Consult Reason/Comments: Metastatic cancer Do you want consulting provider notified?: Yes 03/12/21 08:51 Consult Physician Routine Consulting Provider: Armando Solares Consult Reason/Comments: palliaitive radiation right shoulder, left fem neck Do you want consulting provider notified?: Yes 03/16/21 12:00 Consult Physician Routine Consulting Provider: April Chahal Consult Reason/Comments: pain management Do you want consulting provider notified?: Yes Primary care physician: [facility] Course: Chief Complaint: Increasing back pain History of presenting complaint: This is a pleasant 60-year-old patient of Dr. Skelton. Patient's oncologist is Dr. Mcelroy. About 2 years ago patient was diagnosed with tongue cancer. Underwent partial glossectomy with some lymph node removal. It was felt that time all the tumor was removed. Patient had recurrence of his lymph nodes and patient underwent surgery in the neck and several lymph nodes were removed about 6 months ago. Patient subsequently has undergone 2 rounds of chemotherapy. Also received radiation treatment. Right now he is between treatments for the cause being determined. Patient has underlying dysphagia and has difficulty swallowing. Patient been having weight loss and decreased appetite. Patient now presents with worsening low back pain for 2 weeks. Was able to walk. Patient not had a bowel movement for last 2 weeks. Normally able to go every other day. No change in urine pattern. Denies any fever and chills. Patient question was found to be hypercalcemic in the ER, and was given IV pamidronate. Oncology was consulted. Also calcitonin was ordered this morning by oncology. Patient had a PET scan 2 days ago results of which are noted below. Has shown progression of metastatic osseous disease. Admitted with increasing pain in the lower back from metastatic disease. Hypercalcemia. Started on IV steroids, given IV pamidronate and calcitonin. Lidoderm patch. Patient was seen by pain management. Because of OxyContin adjusted. Also patient was started on radiation treatment to the spine. March 17: Patient's pain better controlled. Seen by Dr. Chahal from pain management. OxyContin changed to 30 mg every 4 when necessary. Discussed with the patient. Questions answered. He'll follow up with oncology Consultation: Dr. Lindo from oncology Dr. Ruiz, from pain management Dr. Armando Solares from radiation oncology Past medical history to include: Hypertension, The Tongue (of the Neck with Chemotherapy and Radiation Treatment and Has Metastatic Disease to the Spine. Patient Has Some Weakness of the Right Shoulder from Surgery. Social History: . Does Not Smoke or Drink Alcohol. 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 Family History: Cancer Physical examination: VITAL SIGNS: 98.1, 62, 18, 97/56, 100% room air GENERAL: Sitting up in chair more comfortable EYES: Pupils equal. Conjunctiva pale HEENT: Some facial and neck asymmetry. Partial tongue removed from the right side. NECK: JVD unable to assess; masses not palpable. HEART: First and second heart sounds are normal; no edema. LUNGS: Respiratory rate normal; clear to auscultation. ABDOMEN: Soft, nontender, liver spleen not palpable, no masses palpable. PSYCH: Alert and oriented x3; mood and affect anxious. NEUROLOGICAL: Facial and neck asymmetry. Speech is a bit slow. Power and sensation grossly intact. INVESTIGATIONS, reviewed in the clinical context: March 16: White count 4.7 hemoglobin 8.4 platelets 64 potassium 4.2 creatinine 1.02 March 14: Potassium 3.6 creatinine 1.21 calcium 11.8 March 13: WBC 2.2 hemoglobin 7.9 platelets 29 potassium 4.3 creatinine 1.3 calcium 12.2 INR scheduled 7 Reason: NONSPECIFIC FINDINGS White count 3.3 hemoglobin 10.1 platelets 25 sodium 135 potassium 3.9 BUN 20 creatinine 1.44 Glucose 118 calcium 14.7 albumin 3.3 EKG tracing personally reviewed by me-normal sinus rhythm, 74/m PET scan [03/10/2021]: Multiple new hypermetabolic osseous metastatic lesions. Destructive inferior right scapular lesion. Hypermetabolic lesions left scapula. Also inferior sternum. Metabolic septal lactic thoracic lesion T6 level through T8. Some scattered sclerotic lesions throughout the pelvis bilaterally including the left proximal femur. Right lower lateral lip lesion. 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 Regional extension into bilateral lymph nodes. He underwent concurrent chemoradiation in September 2020.. Subsequently had metastatic disease in January of this year underwent chemo- immunotherapy, which she finished 2 weeks ago. PET scan showed progression of osseous disease. Being followed by oncology -Hypercalcemia of malignancy. Also contribution from decreased oral intake. Received IV pamidronate and IV calcitonin . IV fluids -Chronic dysarthria from partial glossectomy ground diet. -Essential hypertension Given chronic kidney disease, with DC Cozaar . Catapres 0.1 mg twice a day started -Pancytopenia, likely from chemotherapy Follow CBC -Acute on chronic pain from metastatic disease of the T6-T8 thoracic spine.. Continue with fentanyl. Lidoderm patch. K-pad. Palliative radiation treatment OxyContin 30 mg every 4 when necessary. -Chronic constipation with acute exacerbation from narcotics Responded to laxatives -Chronic kidney disease, stage 2 Patient's creatinine was 1.75 in September of this year. Renal ultrasound: Nonspecific -Mild protein calorie malnutrition from decreased oral intake from underlying malignancy. Add ensure Disposition: Home Plan - Discharge Summary Discharge Rx Participant: Yes New Discharge Prescriptions: New Pantoprazole [Protonix] 40 mg PO AC-BID #60 tab Dexamethasone [Decadron] 4 mg PO BID #25 tablet Psyllium Husk 100% [Metamucil Packet] 6 gm PO BID #30 packet Continue Multivitamins, Thera [Multivitamin (formulary)] 1 tab PO DAILY fentaNYL 25MCG/HR PATCH [Duragesic 25MCG/HR] 2 patch TRANSDERM Q48H Polyethylene Glycol 3350 [Miralax] 17 gm PO BID PRN PRN Reason: Constipation Losartan Potassium [Cozaar] 100 mg PO DAILY Cevimeline [Evoxac] 30 mg PO TID fentaNYL 100MCG/HR PATCH [Duragesic 100MCG/HR] 1 patch TRANSDERM Q48H Sennosides/Docusate Sodium [Senna Plus 8.6-50 mg Softgel] 2 cap PO HS Pilocarpine [Salagen] 5 mg PO TID Changed oxyCODONE HCL [oxyCODONE HCL (IR)] 15 - 30 mg PO Q4H PRN #0 PRN Reason: Pain Discharge Medication List Cevimeline [Evoxac] 30 mg PO TID 12/31/20 [History] Losartan Potassium [Cozaar] 100 mg PO DAILY 12/31/20 [History] Multivitamins, Thera [Multivitamin (formulary)] 1 tab PO DAILY 12/31/20 [History] Pilocarpine [Salagen] 5 mg PO TID 03/12/21 [History] Polyethylene Glycol 3350 [Miralax] 17 gm PO BID PRN 03/12/21 [History] Sennosides/Docusate Sodium [Senna Plus 8.6-50 mg Softgel] 2 cap PO HS 03/12/21 [History] fentaNYL 100MCG/HR PATCH [Duragesic 100MCG/HR] 1 patch TRANSDERM Q48H 03/12/21 [History] fentaNYL 25MCG/HR PATCH [Duragesic 25MCG/HR] 2 patch TRANSDERM Q48H 03/12/21 [History] Dexamethasone [Decadron] 4 mg PO BID #25 tablet 03/17/21 [Rx] Pantoprazole [Protonix] 40 mg PO AC-BID #60 tab 03/17/21 [Rx] Psyllium Husk 100% [Metamucil Packet] 6 gm PO BID #30 packet 03/17/21 [Rx] oxyCODONE HCL [oxyCODONE HCL (IR)] 15 - 30 mg PO Q4H PRN #0 03/17/21 [Rx] Follow up Appointment(s)/Referral(s): Peter Skelton DO [Primary Care Provider] - 03/20/21 10:30 am April Chahal MD [STAFF PHYSICIAN] - 1 Week (patient will have to call and schedule own appt.) Sharon Nieves MD [STAFF PHYSICIAN] - 04/07/21 8:15 am Patient Instructions/Handouts: Laxative, Bulk-forming (By mouth), Dexamethasone (By mouth), Pantoprazole (By mouth), Bone Metastasis (DC) Discharge Disposition: HOME SELF-CARE
== END 2021-03-17 16:10 | disposition home or self-care (01) | DRG 947 ==
LOC: EC 23:44 → 5NMEDONC 03-12 03:41
PROVIDERS: ADMIT Hospitalist; ATTEND Hospitalist
PROC: DP0C2ZZ Beam Radiation of Other Bone using Photons >10 MeV (ICD-10-PCS; principal; 2021-03-13)
PROC: DP0C1ZZ Beam Radiation of Other Bone using Photons 1 - 10 MeV (ICD-10-PCS; principal; 2021-03-13)
DX: G89.3 Neoplasm related pain (acute) (chronic) (principal); D61.810 Antineoplastic chemotherapy induced pancytopenia; C79.51 Secondary malignant neoplasm of bone; C77.0 Secondary and unspecified malignant neoplasm of lymph nodes of head, face and neck; E44.1 Mild protein-calorie malnutrition; G81.91 Hemiplegia, unspecified affecting right dominant side; N18.30 Chronic kidney disease, stage 3 unspecified; Z20.822 Contact with and (suspected) exposure to COVID-19; I12.9 Hypertensive chronic kidney disease with stage 1 through stage 4 chronic kidney disease, or unspecified chronic kidney disease; G56.91 Unspecified mononeuropathy of right upper limb; E83.52 Hypercalcemia; R47.1 Dysarthria and anarthria; R13.10 Dysphagia, unspecified; K59.09 Other constipation; Z68.24 Body mass index [BMI] 24.0-24.9, adult; T45.1X5A Adverse effect of antineoplastic and immunosuppressive drugs, initial encounter; Z79.899 Other long term (current) drug therapy; Z79.891 Long term (current) use of opiate analgesic; Z85.810 Personal history of malignant neoplasm of tongue; Z87.39 Personal history of other diseases of the musculoskeletal system and connective tissue; Z92.3 Personal history of irradiation; Z92.21 Personal history of antineoplastic chemotherapy; Z98.890 Other specified postprocedural states; Z71.3 Dietary counseling and surveillance; Z80.9 Family history of malignant neoplasm, unspecified
CPT/HCPCS: 36415; 76770; 77280; 77290; 77307; 77334; 77387; 77412; 77417; 80048; 80053; 81003; 82306; 82330; 83735; 84100; 84443; 84484; 85025; 85384; 85610; 85730; 87635; 93005; 96374; 96375; 99285

== ENCOUNTER 2021-04-17 12:33 | Inpatient (IN) | payer BC ==
[2021-04-17] MEDS ORDERED: SODIUM CHLORIDE 0.9% 1,000 ML IV STA ×3 (13:49→15:53)
--- NOTE | 2021-04-17 14:05 | ED ---
Weakness HPI - General Chief complaint: Weakness Stated complaint: Weakness,Cancer pt Time Seen by Provider: 04/17/21 13:25 Source: patient, family, RN notes reviewed Mode of arrival: wheelchair Limitations: physical limitation - History of Present Illness Initial comments: 60-year-old male with a history of head neck cancer squamous cell, who presents with complaints of generalized weakness feeling thrive decreased intake he does have a PEG tube and has not been taking any oral food or drink. He did also fall recently and so has a bruise to the right side of his face. He has chronic back pain he states is very severe this is believed to be from the metastatic disease. He has had chemo and radiation therapy but the cancer still persists. Patient has been demonstrating about one week of intermittent episodes of some confusion. Additionally he stated decreased oral intake. He did fall several days ago. He did a CAT scan of the brain done about 2 weeks ago which apparently did not show any evidence of metastatic disease. No overt fevers chills sweats. He was sent here after they did discuss the case with Dr. Solares from radiation oncology. MD Complaint: generalized weakness - Related Data Home Medications Medication Instructions Recorded Confirmed Cevimeline [Evoxac] 30 mg PO TID 12/31/20 04/17/21 Losartan Potassium [Cozaar] 100 mg PO DAILY 12/31/20 04/17/21 Multivitamins, Thera [Multivitamin 1 tab PO DAILY 12/31/20 04/17/21 (formulary)] Pilocarpine [Salagen] 5 mg PO TID 03/12/21 04/17/21 fentaNYL 100MCG/HR PATCH 1 patch TRANSDERM Q48H 03/12/21 04/17/21 [Duragesic 100MCG/HR] ALPRAZolam [Xanax] 0.5 mg PO Q12H PRN 04/17/21 04/17/21 Fluoride (Sodium) [Sodium Fluoride 1 applic DENTAL DAILY 04/17/21 04/17/21 5000 Plus] Lidocaine-Prilocaine Cream [Emla 1 applic TOPICAL DIRECTED PRN 04/17/21 04/17/21 Cream 2.5%/2.5%] Naloxone HCl [Narcan] 4 mg NASAL ONCE PRN 04/17/21 04/17/21 fentaNYL 50MCG/HR PATCH [Duragesic 1 patch TRANSDERM Q48H 04/17/21 04/17/21 50MCG/HR] Previous Rx's Medication Instructions Recorded Pantoprazole [Protonix] 40 mg PO AC-BID #60 tab 03/17/21 oxyCODONE HCL [oxyCODONE HCL (IR)] 15 - 30 mg PO Q4H PRN #0 03/17/21 Allergies Allergy/AdvReac Type Severity Reaction Status Date / Time bacitracin AdvReac Rash/Hives Verified 04/17/21 14:51 Review of Systems ROS Statement: Those systems with pertinent positive or pertinent negative responses have been documented in the HPI. ROS Other: All systems not noted in ROS Statement are negative. 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 mets to back. History of Any Multi-Drug Resistant Organisms: None Reported Past Surgical History: Orthopedic Surgery Additional Past Surgical History / Comment(s): 06/06/2019-surgery on tongue to remove cancer and removal of lympth nodes in throat, ben wrist carpal tunnel, peg tube Past Anesthesia/Blood Transfusion Reactions: No Reported Reaction Additional Past Anesthesia/Blood Transfusion Reaction / Comment(s): states he has some paralysis of rt shoulder and mouth after cancer surgery but states no diff with intubation Past Psychological History: No Psychological Hx Reported Smoking Status: Never smoker Past Alcohol Use History: None Reported Past Drug Use History: None Reported - Past Family History Mother Family Medical History: Cancer General Exam - General Exam Comments Initial Comments: Is a well-developed frail appearing male who is awake alert oriented 3 with episodes of confusion Limitations: physical limitation General appearance: alert, lethargic Head exam: Present: atraumatic, normocephalic, normal inspection Eye exam: Present: normal appearance, PERRL, EOMI. Absent: scleral icterus, conjunctival injection, periorbital swelling ENT exam: Present: mucous membranes dry (Evidence of a mass to the right side of the face) Neck exam: Present: full ROM, lymphadenopathy Respiratory exam: Present: decreased breath sounds Cardiovascular Exam: Present: regular rate, normal rhythm, normal heart sounds. Absent: systolic murmur, diastolic murmur, rubs, gallop, clicks GI/Abdominal exam: Present: soft, normal bowel sounds, other (PEG tube in place). Absent: distended, tenderness, guarding, rebound, rigid Extremities exam: Present: normal inspection, full ROM, normal capillary refill. Absent: tenderness, pedal edema, joint swelling, calf tenderness Back exam: Present: normal inspection Neurological exam: Present: alert, oriented X3, CN II-XII intact Psychiatric exam: Present: normal affect, normal mood Skin exam: Present: warm, dry, intact, normal color. Absent: rash Course Vital Signs 04/17/21 12:40 Temperature 97.8 F Pulse Rate 92 Respiratory 16 Rate Blood Pressure 145/90 O2 Sat by Pulse 98 Oximetry EKG Findings - EKG Results: EKG: interpreted by RYAN, sinus rhythm (Sinus rhythm rate 84. Interval 156 QRS 84 QT/QTC 364/4:30 nonspecific T-wave configuration) Medical Decision Making - Medical Decision Making I did discuss [employer] the patient's family. Patient will be admitted he does demonstrate evidence of acute kidney injury with hypercalcemia hypomagnesemia also elevated troponin. I did discuss case with Dr. Celis - Lab Data Result diagrams: 04/17/21 13:55 04/17/21 13:55 Lab Results 04/17/21 04/17/21 04/17/21 Range/Units 13:55 13:55 13:55 WBC 6.9 (3.8-10.6) k/uL RBC 2.79 L (4.30-5.90) m/uL Hgb 8.8 L (13.0-17.5) gm/dL Hct 26.2 L (39.0-53.0) % MCV 94.0 (80.0-100.0) fL MCH 31.6 (25.0-35.0) pg MCHC 33.6 (31.0-37.0) g/dL RDW 15.7 H (11.5-15.5) % Plt Count 195 D (150-450) k/uL MPV 9.1 Neutrophils % 85 % Lymphocytes % 6 % Monocytes % 5 % Eosinophils % 3 % Basophils % 0 % Neutrophils # 5.8 (1.3-7.7) k/uL Lymphocytes # 0.4 L (1.0-4.8) k/uL Monocytes # 0.4 (0-1.0) k/uL Eosinophils # 0.2 (0-0.7) k/uL Basophils # 0.0 (0-0.2) k/uL Poikilocytosis Slight Sodium 130 L (137-145) mmol/L Potassium 5.1 (3.5-5.1) mmol/L Chloride 90 L (98-107) mmol/L Carbon Dioxide 31 H (22-30) mmol/L Anion Gap 9 mmol/L BUN 92 H (9-20) mg/dL Creatinine 3.00 H (0.66-1.25) mg/dL Est GFR (CKD-EPI)AfAm 25 (>60 ml/min/1.73 sqM) Est GFR (CKD-EPI)NonAf 21 (>60 ml/min/1.73 sqM) Glucose 117 H (74-99) mg/dL Plasma Lactic Acid Bernabe 1.8 (0.7-2.0) mmol/L Calcium 18.4 H* (8.4-10.2) mg/dL Magnesium 3.0 H (1.6-2.3) mg/dL Total Bilirubin 0.4 (0.2-1.3) mg/dL AST 35 (17-59) U/L ALT 24 (4-49) U/L Alkaline Phosphatase 143 H (38-126) U/L Ammonia 11 (<30) umol/L Creatine Kinase <20 L (55-170) U/L Troponin I (0.000-0.034) ng/mL Total Protein 6.5 (6.3-8.2) g/dL Albumin 3.1 L (3.5-5.0) g/dL Lipase 762 H (23-300) U/L Urine Color Urine Appearance (Clear) Urine pH (5.0-8.0) Ur Specific Garrison (1.001-1.035) Urine Protein (Negative) Urine Glucose (UA) (Negative) Urine Ketones (Negative) Urine Blood (Negative) Urine Nitrite (Negative) Urine Bilirubin (Negative) Urine Urobilinogen (<2.0) mg/dL Ur Leukocyte Esterase (Negative) Urine RBC (0-5) /hpf Urine WBC (0-5) /hpf Urine Bacteria (None) /hpf Hyaline Casts (0-2) /lpf Urine Mucus (None) /hpf Urine Yeast (Budding) (None) /hpf 04/17/21 04/17/21 Range/Units 13:55 15:30 WBC (3.8-10.6) k/uL RBC (4.30-5.90) m/uL Hgb (13.0-17.5) gm/dL Hct (39.0-53.0) % MCV (80.0-100.0) fL MCH (25.0-35.0) pg MCHC (31.0-37.0) g/dL RDW (11.5-15.5) % Plt Count (150-450) k/uL MPV Neutrophils % % Lymphocytes % % Monocytes % % Eosinophils % % Basophils % % Neutrophils # (1.3-7.7) k/uL Lymphocytes # (1.0-4.8) k/uL Monocytes # (0-1.0) k/uL Eosinophils # (0-0.7) k/uL Basophils # (0-0.2) k/uL Poikilocytosis Sodium (137-145) mmol/L Potassium (3.5-5.1) mmol/L Chloride (98-107) mmol/L Carbon Dioxide (22-30) mmol/L Anion Gap mmol/L BUN (9-20) mg/dL Creatinine (0.66-1.25) mg/dL Est GFR (CKD-EPI)AfAm (>60 ml/min/1.73 sqM) Est GFR (CKD-EPI)NonAf (>60 ml/min/1.73 sqM) Glucose (74-99) mg/dL Plasma Lactic Acid Bernabe (0.7-2.0) mmol/L Calcium (8.4-10.2) mg/dL Magnesium (1.6-2.3) mg/dL Total Bilirubin (0.2-1.3) mg/dL AST (17-59) U/L ALT (4-49) U/L Alkaline Phosphatase (38-126) U/L Ammonia (<30) umol/L Creatine Kinase (55-170) U/L Troponin I 0.092 H* (0.000-0.034) ng/mL Total Protein (6.3-8.2) g/dL Albumin (3.5-5.0) g/dL Lipase (23-300) U/L Urine Color Yellow Urine Appearance Cloudy (Clear) Urine pH 7.0 (5.0-8.0) Ur Specific Garrison 1.010 (1.001-1.035) Urine Protein Trace H (Negative) Urine Glucose (UA) Negative (Negative) Urine Ketones Negative (Negative) Urine Blood Negative (Negative) Urine Nitrite Negative (Negative) Urine Bilirubin Negative (Negative) Urine Urobilinogen <2.0 (<2.0) mg/dL Ur Leukocyte Esterase Trace H (Negative) Urine RBC 1 (0-5) /hpf Urine WBC 7 H (0-5) /hpf Urine Bacteria Rare H (None) /hpf Hyaline Casts 1 (0-2) /lpf Urine Mucus Rare H (None) /hpf Urine Yeast (Budding) Occasional H (None) /hpf - Radiology Data Radiology results: report reviewed, image reviewed Disposition Clinical Impression: Acute kidney injury, Hypercalcemia, Hypermagnesemia, Metastatic cancer, Elevated troponin, Failure to thrive, Dehydration, Chronic anemia Disposition: ADMITTED IP TO THIS [facility] Condition: Fair Referrals: Peter kSelton DO [Primary Care Provider] - 1-2 days
[2021-04-17 14:23] LABS: Lactic Acid, Venous 1.8 mmol/L (0.7-2.0)
[2021-04-17 14:33] LABS: Basophils % (A) 0 %; Eosinophils # (A) 0.2 k/uL (0-0.7); Eosinophils % (A) 3 %; HCT 26.2 % (39.0-53.0); HGB 8.8 gm/dL (13.0-17.5); Lymphocytes # (A) 0.4 k/uL (1.0-4.8); Lymphocytes % (A) 6 %; MCH 31.6 pg (25.0-35.0); MCHC 33.6 g/dL (31.0-37.0); Mean Platelet Volume 9.1; Monocytes # (A) 0.4 k/uL (0-1.0); Monocytes % (A) 5 %; Neutrophils # (A) 5.8 k/uL (1.3-7.7); Neutrophils % (A) 85 %; Poikilocytosis Slight; RBC 2.79 m/uL (4.30-5.90); RDW 15.7 % (11.5-15.5); WBC 6.9 k/uL (3.8-10.6)
[2021-04-17 14:38] LABS: ALT 24 U/L (4-49); AST 35 U/L (17-59); African American GFR (CKD) 25 (>60 ml/min/1.73 sqM); Albumin 3.1 g/dL (3.5-5.0); Alkaline Phosphatase 143 U/L (38-126); Anion Gap 9 mmol/L; Blood Urea Nitrogen 92 mg/dL (9-20); Carbon Dioxide 31 mmol/L (22-30); Chloride 90 mmol/L (98-107); Creatine Kinase <20 U/L (55-170); Glucose 117 mg/dL (74-99); Lipase 762 U/L (23-300); Non-African American GFR(CKD) 21 (>60 ml/min/1.73 sqM); Potassium 5.1 mmol/L (3.5-5.1); Sodium 130 mmol/L (137-145); Total Bilirubin 0.4 mg/dL (0.2-1.3); Total Protein 6.5 g/dL (6.3-8.2)
--- NOTE | 2021-04-17 14:42 | XR ---
EXAMINATION TYPE: XR chest 2V DATE OF EXAM: 04/17/2021 COMPARISON: Chest x-ray January 01, 2021 HISTORY: Weakness. TECHNIQUE: Frontal and lateral views of the chest are obtained. FINDINGS: Stable right internal jugular Mediport catheter. There are chronic parenchymal changes gre atest right lung base without suspicious focal air space opacity, pleural effusion, or pneumothorax s een. The cardiac silhouette size is stable and within normal limits. The osseous structures are in tact. Bilateral neck surgical clips are partially imaged.. IMPRESSION: No acute cardiopulmonary process. No significant change from prior.
[2021-04-17 14:46] LABS: Platelet Count 195 k/uL (150-450)
--- NOTE | 2021-04-17 14:55 | CT ---
EXAMINATION TYPE: CT brain wo con DATE OF EXAM: 04/17/2021 HISTORY: ams, weakness, throat ca with mets CT DLP: 1188.4 mGycm. Automated Exposure Control for Dose Reduction was Utilized. TECHNIQUE: CT scan of the head is performed without contrast. COMPARISON: PET/CT March 06, 2021 FINDINGS: There is no acute intracranial hemorrhage or midline shift identified. There is my old di ffuse ventricular and sulcal prominence consistent with diffuse age-related cerebral atrophy. There is mild low-attenuation in the periventricular white matter consistent with chronic small vessel isch emic change. The globes are intact and the visualized sinuses are clear. IMPRESSION: No acute intracranial hemorrhage or midline shift. There is mild diffuse age-related ce rebral atrophy and chronic small vessel ischemic change noted.
[2021-04-17 15:00] LABS: Calcium 18.4 mg/dL (8.4-10.2)
[2021-04-17 15:38] LABS: Appearance,Urine Cloudy (Clear); Bacteria,Urine Rare /hpf; Bilirubin,Urine Negative (Negative); Blood,Urine Negative (Negative); Budding Yeast,Urine Occasional /hpf; Color,Urine Yellow; Glucose,Urine (UA) Negative (Negative); Hyaline Casts,Urine 1 /lpf (0-2); Ketones,Urine Negative (Negative); Leukocyte Esterase,Urine Trace (Negative); Mucus,Urine Rare /hpf; Nitrite,Urine Negative (Negative); Protein,Urine Trace (Negative); RBC,Urine 1 /hpf (0-5); Urobilinogen,Urine <2.0 mg/dL (<2.0); WBC,Urine 7 /hpf (0-5)
[2021-04-17] MEDS ORDERED: NALOXONE 0.4 MG/ML 1 ML VIAL IV PRN (16:50)
[2021-04-17] MEDS ORDERED: ALPRAZolam 0.5 MG TAB PO PRN (16:56)
[2021-04-17] MEDS ORDERED: TEMAZEPAM 15 MG CAP PO PRN (17:43)
[2021-04-17] MEDS ORDERED: HYDROmorphone 0.5 MG/0.5 ML SYRINGE IVP PRN (17:43)
[2021-04-17] MEDS ORDERED: LORazepam 0.5 MG TAB PO PRN (17:43)
--- NOTE | 2021-04-17 18:47 | HP ---
HISTORY AND PHYSICAL DATE OF SERVICE: 04/17/2021 CHIEF COMPLAINT: Back pain. HISTORY OF PRESENT ILLNESS: This 60-year-old gentleman with a past medical history of head and neck cancer, history of hypertension, history of CA tongue and multiple surgeries and radiation and chemotherapy being for Dr. Skelton in outpatient as well, the patient is also complaining of back pain. The patient apparently had back pain and shoulder pain, had mets, and was supposed to have intervention by neurosurgeon in the [facility] according to the family, but because of increased pain and other difficulties the patient came to [facility] and was admitted for evaluation and treatment. Patient also had a PEG tube and gravity feet used. The patient also had a fall and fluids and generalized weakness. There is no history of fever rigors, no headache. Mild loss conscious. CT scan of the brain did not show any metastatic disease. PAST MEDICAL HISTORY: Squamous cell cancer of the tongue with surgeries and radiation chemotherapy as mentioned earlier, history of PEG tube placement, hypertension, DJD. MEDICATIONS: Home medications are oxycodone 30 mg q.4h p.r.n., fentanyl patch every 48 hours 150 mg, Protonix, Narcan, multivitamin, Cozaar, EMLA cream, Evoxac, Xanax. ALLERGIES: Multiple allergies. FAMILY HISTORY: History of cancer in the family. SOCIAL HISTORY: No history of smoking. No alcohol. REVIEW OF SYSTEMS: ENT mentioned earlier. Cardiovascular no angina. Respiration no cough or hemoptysis. GI no nausea. no dysuria. Nervous System as mentioned. Allergies no asthma. Musculoskeletal as mentioned. Cardiology as mentioned. Endocrine no history of diabetes. Psychiatric as mentioned earlier. PHYSICAL EXAMINATION: Alert oriented. Pulse 85, blood pressure 145/90, respirations 16, temperature 97.8, pulse ox 98% on room air. HEENT conjunctivae normal. Cardiac no murmur. Respirations decreased at the bases. A few scattered rhonchi. Abdomen soft, mild diffuse discomfort. No mass palpable. No guarding. No rigidity. Legs no edema. Nervous systems, higher functions as mentioned. Moves all no focal. Skin no rashes. Joints no active deformities. Examination of the back showed some tenderness present during movement. LAB STUDIES: Hemoglobin is 8.2, sodium 130. Other labs are noted. ASSESSMENT: 1. Acute severe low back pain with failure of outpatient treatment, possibly secondary to metastatic squamous cell carcinoma. 2. Metastatic squamous cell carcinoma of the right lung, status post surgery and chemotherapy and radiation. 3. Hyponatremia. 4. Hypercalcemia secondary to malignancy. 5. Acute renal failure acute tubular necrosis multifactorial. 6. Troponin 0.0492, indeterminate. 7. Elevated lipase. 8. Anemia, normocytic anemia of chronic disease. 9. History of hypertension. 10.History of degenerative joint disease. 11.Severe protein calorie malnutrition, BMI of 19. 12.Status post PEG tube. 13.FULL CODE. RECOMMENDATIONS AND DISCUSSION: This 60-year-old gentleman who presented with multiple complex medical issues, we will monitor the patient closely, continue the current management. We will initiate IV Dilaudid and some pain medications. Hematology oncology consultation. Symptomatic treatment. DVT prophylaxis. Repeat labs. Prognosis guarded. Further recommendations to follow. MEDINA / RACHEL: [id number] /
[2021-04-17] MEDS: methylPREDNISolone SOD SUCCI 125 MG/2 ML VIAL IV SCH ×2 (19:13→23:23)
[2021-04-17] MEDS: PANTOPRAZOLE 40 MG TABLET PO SCH (19:13)
[2021-04-17 21:09] LABS: Glucose,Whole Blood 103 mg/dL (75-99)
[2021-04-17] MEDS: INSULIN ASPART (NovoLOG) 100 UNIT/ML VIAL SQ SCH (21:22)
[2021-04-17] MEDS: SODIUM CHLORIDE 0.9% 1,000 ML IV SCH (21:23)
[2021-04-17] MEDS: CEVIMELINE 30 MG CAP PO SCH (21:24)
[2021-04-17] MEDS: PILOCARPINE 5 MG TAB PO SCH (21:24)
[2021-04-18] MEDS: SODIUM CHLORIDE 0.9% 1,000 ML IV SCH ×3 (03:45→17:22)
[2021-04-18] MEDS: methylPREDNISolone SOD SUCCI 125 MG/2 ML VIAL IV SCH (06:31)
[2021-04-18] MEDS: PANTOPRAZOLE 40 MG TABLET PO SCH ×2 (06:32→17:21)
[2021-04-18 06:40] LABS: Glucose,Whole Blood 220 mg/dL (75-99)
[2021-04-18] MEDS: INSULIN ASPART (NovoLOG) 100 UNIT/ML VIAL SQ SCH ×4 (06:44→20:43)
[2021-04-18] MEDS ORDERED: MULTIVITAMINS, THERA 1 EACH TAB PO SCH (09:00)
[2021-04-18] MEDS ORDERED: FLUORIDE DENTAL SCH (09:00)
[2021-04-18] MEDS ORDERED: LOSARTAN 50 MG TAB PO SCH (09:00)
[2021-04-18 09:17] LABS: Basophils % (A) 0 %; Eosinophils % (A) 0 %; Lymphocytes # (A) 0.2 k/uL (1.0-4.8); Lymphocytes % (A) 7 %; MCH 32.1 pg (25.0-35.0); MCHC 33.1 g/dL (31.0-37.0); MCV 96.9 fL (80.0-100.0); Mean Platelet Volume 8.8; Monocytes % (A) 1 %; Neutrophils # (A) 2.8 k/uL (1.3-7.7); Neutrophils % (A) 90 %; Platelet Count 152 k/uL (150-450); Poikilocytosis Slight; RBC 2.27 m/uL (4.30-5.90); RDW 15.6 % (11.5-15.5); WBC 3.2 k/uL (3.8-10.6)
[2021-04-18 09:18] LABS: HGB 7.3 gm/dL (13.0-17.5)
[2021-04-18 09:20] LABS: Albumin 2.6 g/dL (3.5-5.0); Potassium 5.5 mmol/L (3.5-5.1); Total Bilirubin 0.2 mg/dL (0.2-1.3); Total Protein 5.6 g/dL (6.3-8.2)
[2021-04-18 09:39] LABS: Calcium 15.6 mg/dL (8.4-10.2)
[2021-04-18] MEDS: PILOCARPINE 5 MG TAB PO SCH ×3 (11:12→20:43)
[2021-04-18] MEDS: CEVIMELINE 30 MG CAP PO SCH ×3 (11:12→20:43)
[2021-04-18 11:15] VITALS: BMI 22.1
[2021-04-18 11:53] LABS: Glucose,Whole Blood 235 mg/dL (75-99)
--- NOTE | 2021-04-18 12:11 | P.PN ---
Progress Note - Text Progress Note Date: 04/18/21 This is a pleasant 60-year-old patient of Dr. Skelton. Patient's oncologist is Dr. Mcelroy. About 2 years ago patient was diagnosed with tongue cancer. Underwent partial glossectomy with some lymph node removal. It was felt that time all the tumor was removed. Patient had recurrence of his lymph nodes and patient underwent surgery in the neck and several lymph nodes were removed about 6 months ago. Patient subsequently has undergone 2 rounds of chemotherapy. Also received radiation treatment. Patient has underlying dysphagia and has difficulty swallowing. shown progression of metastatic osseous disease. Was recently admitted in March with increasing pain in the lower back from metastatic disease. Hypercalcemia. Given IV steroids, IV pamidronate and calcitonin. Lidoderm patch. Patient received about 14 days of radiation treatment. Patient is now home with his . Getting 2 feeding. Not eating by mouth.. Bed bound. Patient not a candidate for trial medications because of poor functional condition. He's failed all other treatments. Now presents with increasing back pain. Has chronic pain underlying and is on significant amount of narcotics. Patient is a bowel movement every 4-5 days. Weight loss Review of systems: GEN.: Tired , decreased appetite EYES: None HEENT: Some trouble swallowing NECK: None RESPIRATORY: None CARDIOVASCULAR: None GASTROINTESTINAL: Constipation, PEG tube feeding GENITOURINARY: None MUSCULOSKELETAL: As above LYMPHATICS: None HEMATOLOGICAL: None PSYCHIATRY: Anxious NEUROLOGICAL: Generalized weakness Past medical history to include: Hypertension, cancer Tongue (of the Neck with Chemotherapy and Radiation Treatment and Has Metastatic Disease to the Spine. Social History: . Does Not Smoke or Drink Alcohol. 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 Family History: Cancer Physical examination: VITAL SIGNS: 97.5, 88, 18, 1:30/68, 96% room air GENERAL: BMI 22.1, laying in bed, tired, awake EYES: Pupils equal. Conjunctiva pale HEENT: Some facial and neck asymmetry. Partial tongue removed from the right s ericka. NECK: JVD unable to assess; masses not palpable. HEART: First and second heart sounds are normal; no edema. LUNGS: Respiratory rate normal; clear to auscultation. ABDOMEN: Soft, nontender, liver spleen not palpable, no masses palpable. PEG tube PSYCH: Alert and oriented x3; mood and affect anxious NEUROLOGICAL: Facial and neck asymmetry. Speech is slow/. Power and sensation grossly intact. LYMPHATICS: No lymph nodes palpable in the axilla and neck INVESTIGATIONS, reviewed in the clinical context: WBC 3.2 hemoglobin 7.3 platelets 152 sodium 129 potassium 5.5 BUN 90 creatinine 3.12 calcium 15.6, ionized calcium 8.8 albumin 2.6 PET scan [03/10/2021]: Multiple new hypermetabolic osseous metastatic lesions. Destructive inferior right scapular lesion. Hypermetabolic lesions left scapula. Also inferior sternum. Metabolic septal lactic thoracic lesion T6 level through T8. Some scattered sclerotic lesions throughout the pelvis bilaterally including the left proximal femur. Right lower lateral lip lesion. 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 Regional extension into bilateral lymph nodes. He underwent concurrent chemoradiation in September 2020.. Subsequently had metastatic disease in January of this year underwent chemo- immunotherapy, PET scan showed progression of osseous disease. Patient has failed chemotherapy and immunotherapy and radiation treatment. Not felt to be candidate for clinical trial. -Hypercalcemia of malignancy. Also contribution from decreased oral intake. 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 Follow closely -Pancytopenia, likely from chemotherapy Follow CBC -Acute on chronic pain from metastatic disease of the T6-T8 thoracic spine.. Continue with oxycodone, Duragesic patch,. Detached K pad. -Chronic constipation with acute exacerbation from narcotics Responded to laxatives -Chronic kidney disease, stage 2 Patient's creatinine was 1.75 in September of this year. Renal ultrasound: Nonspecific -Moderate protein calorie malnutrition from decreased oral intake from underlying malignancy. PEG tube feeding -Acute and chronic medical debility. Patient has been pretty much bedbound Home pain medications and resume. Hold Cozaar. IV fluids. Resume [address] Mcelroy on the phone. Prognosis poor. Hospice appropriate. Advanced care planning: Had a lengthy discussion with the patient and his at the bedside. Did clarify that patient has failed all chemotherapy radiation and immunotherapy. Not a candidate for trial medication. Very poor functional status. Also did convey to discussion with Dr. Mcelroy the patient is appropriate for hospice. They already have [facility] home care coming to the house. He agreed to proceed with hospice. We'll arrange for hospice at home. In the next 24-48 hours depending on clinical course. Questions were answered. Time spent for ACP was about 25 minutes
[2021-04-18] MEDS ORDERED: SODIUM CHLORIDE 0.9% 250 ML with PAMIDRONATE 30 MG IV ONE ×2 (12:30)
--- NOTE | 2021-04-18 13:18 | CONS ---
CONSULTATION REASON FOR CONSULTATION: Renal failure. HISTORY OF PRESENT ILLNESS: The patient is a 60-year-old male with a history of head and neck cancer with carcinoma of the tongue with previous multiple surgeries, admitted to the hospital with decreased oral intake, increased weakness and fall. Patient's serum creatinine was 3.1 mg/dL today. Previous creatinine 1.0 on 03/16/2021. Calcium was noted to be 15.6, and it was 18.4 yesterday. Previous calcium 9.6 on 03/16/2021 with previous history of hypercalcemia in early March of this year as well. Patient denies use of any nonsteroidal anti-inflammatory agents prior to admission. He was maintained on Cozaar, which is currently on hold. Blood pressure is not significantly low, with systolic around 120 to 130 mmHg. PAST MEDICAL HISTORY: Head and neck cancer with cancer of the tongue, history of multiple surgeries and radiation therapy, history of PEG tube placement, hypertension, degenerative joint disease. MEDICATIONS: Medications at home prior to admission included fentanyl patch, oxycodone, Protonix, Narcan, Cozaar, Xanax. ALLERGIES: BACITRACIN. REVIEW OF SYSTEMS: As per HPI. PHYSICAL EXAMINATION: On examination, patient is currently comfortable, awake, not in any acute distress. Blood pressure 130/68, heart rate 88 per minute. He is afebrile. EXAMINATION OF THE HEART: S1 and S2. EXAMINATION OF LUNGS: Bilateral breath sounds are heard. Abdomen is soft, non-tender. Examination of lower extremities shows no significant edema. MANAGER CHANNEL exam shows patient is weak. LABS: Sodium 129, potassium 5.5, chloride 93, BUN 90, creatinine 3.1, calcium 15.6, hemoglobin 7.3 g/dL. ASSESSMENT: 1. Acute kidney injury, prerenal and associated with hypercalcemia. Check ultrasound to rule out urine retention/hydronephrosis. Urinalysis is quite benign. Continue to hold off on the Cozaar. 2. Hypercalcemia associated with underlying history of head and neck cancer. Calcium is down to 15.6 from 18.4 on initial admission. Currently maintained on saline. I will give a dose of pamidronate if patient has not received it since admission. 3. Hyperkalemia associated with acute kidney injury. Rule out urine retention/obstructive uropathy; and also associated with use of Cozaar. Continue to hold off on the Cozaar for now. 4. Head and neck cancer, status post multiple surgeries and radiation therapy. PLAN: Continue IV fluids. Pamidronate x1 and repeat labs in a.m. MMODL / IJN: [id number] /
[2021-04-18 16:29] LABS: Glucose,Whole Blood 162 mg/dL (75-99)
[2021-04-18] MEDS: methylPREDNISolone SOD SUCCI 40 MG/ML 1 ML VIAL IV SCH (17:20)
[2021-04-18 20:25] LABS: Glucose,Whole Blood 182 mg/dL (75-99)
[2021-04-19] MEDS: SODIUM CHLORIDE 0.9% 1,000 ML IV SCH ×2 (00:09→08:48)
[2021-04-19] MEDS: methylPREDNISolone SOD SUCCI 40 MG/ML 1 ML VIAL IV SCH ×2 (00:09→08:47)
[2021-04-19 05:28] LABS: Potassium 5.1 mmol/L (3.5-5.1)
[2021-04-19 05:59] LABS: Calcium 14.9 mg/dL (8.4-10.2)
[2021-04-19 08:31] LABS: Glucose,Whole Blood 208 mg/dL (75-99)
[2021-04-19] MEDS: PANTOPRAZOLE 40 MG TABLET PO SCH (08:44)
[2021-04-19] MEDS: INSULIN ASPART (NovoLOG) 100 UNIT/ML VIAL SQ SCH ×2 (08:47→14:00)
[2021-04-19] MEDS: CEVIMELINE 30 MG CAP PO SCH (09:01)
[2021-04-19] MEDS: PILOCARPINE 5 MG TAB PO SCH (09:01)
[2021-04-19 12:06] LABS: Glucose,Whole Blood 212 mg/dL (75-99)
[2021-04-19 12:44] VITALS: BP 131/72; PULSE 76; RESP 15; TEMP 97.7
--- NOTE | 2021-04-19 13:33 | US ---
EXAMINATION TYPE: US kidneys/renal and bladder DATE OF EXAM: 04/19/2021 COMPARISON: NONE CLINICAL HISTORY: RF. renal failure EXAM MEASUREMENTS: Right Kidney: 11.3 x 5.5 x 5.4cm Left Kidney: 10.5 x 4.1 x 4.3cm Right Kidney: No hydronephrosis or masses seen, wnl Left Kidney: No hydronephrosis or masses seen, wnl Bladder: not distended *scant amount of free fluid noted at Jones's pouch IMPRESSION: No hydronephrosis or nephrolithiasis. Renal cortex maintained. Trace amount of fluid seen adjacent to the right kidney.
--- NOTE | 2021-04-19 14:37 | P.DS ---
Providers Date of admission: 04/17/21 16:51 Expected date of discharge: 04/19/21 Attending physician: Wesly Kim Consults: 04/17/21 16:55 Consult Physician Routine Consulting Provider: Macrina García Consult Reason/Comments: Acute kidney injury, hypercalcemia, dehydration Do you want consulting provider notified?: Yes Primary care physician: Peter Skelton [facility] Course: This is a pleasant 60-year-old patient of Dr. Skelton. Patient's oncologist is Dr. Mcelroy. About 2 years ago patient was diagnosed with tongue cancer. Underwent partial glossectomy with some lymph node removal. It was felt that time all the tumor was removed. Patient had recurrence of his lymph nodes and patient underwent surgery in the neck and several lymph nodes were removed about 6 months ago. Patient subsequently has undergone 2 rounds of chemotherapy. Also received radiation treatment. Patient has underlying dysphagia and has difficulty swallowing. shown progression of metastatic osseous disease. Was recently admitted in March with increasing pain in the lower back from metastatic disease. Hypercalcemia. Given IV steroids, IV pamidronate and calcitonin. Lidoderm patch. Patient received about 14 days of radiation treatment. Patient is now home with his . Getting 2 feeding. Not eating by mouth.. Bed bound. Patient not a candidate for trial medications because of poor functional condition. He's failed all other treatments. Now presents with increasing back pain. Has chronic pain underlying and is on significant amount of narcotics. Patient is a bowel movement every 4-5 days. Weight loss Lengthy discussion was held with the patient and the . They've agreed to proceed with hospice. Also discussed with Dr. Mcelroy from oncology. Agreeable with the same. All treatments have failed. [facility] hospice involved. Consulted patient will have hospice at home. April 19: Laying in bed. No new issues. Being discharged home with hospice. Consultation: Dr. García from nephrology Past medical history to include: Hypertension, cancer Tongue (of the Neck with Chemotherapy and Radiation Treatment and Has Metastatic Disease to the Spine. Social History: . Does Not Smoke or Drink Alcohol. 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 Family History: Cancer Physical examination: VITAL SIGNS: 97.7, 76, 15, 131/72, 98% room air GENERAL: BMI 22.1, laying in bed, tired, awake EYES: Pupils equal. Conjunctiva pale HEENT: Some facial and neck asymmetry. Partial tongue removed from the right side. NECK: JVD unable to assess; masses not palpable. HEART: First and second heart sounds are normal; no edema. LUNGS: Respiratory rate normal; clear to auscultation. ABDOMEN: Soft, nontender, liver spleen not palpable, no masses palpable. PEG tube PSYCH: Alert and oriented x3; mood and affect anxious NEUROLOGICAL: Facial and neck asymmetry. Speech is slow/. Power and sensation grossly intact. INVESTIGATIONS, reviewed in the clinical context: WBC 3.2 hemoglobin 7.3 platelets 152 sodium 129 potassium 5.5 BUN 90 creatinine 3.12 calcium 15.6, ionized calcium 8.8 albumin 2.6 PET scan [03/10/2021]: Multiple new hypermetabolic osseous metastatic lesions. Destructive inferior right scapular lesion. Hypermetabolic lesions left scapula. Also inferior sternum. Metabolic septal lactic thoracic lesion T6 level through T8. Some scattered sclerotic lesions throughout the pelvis bilaterally including the left proximal femur. Right lower lateral lip lesion. 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 Regional extension into bilateral lymph nodes. He underwent concurrent chemoradiation in September 2020.. Subsequently had metastatic disease in January of this year underwent chemo- immunotherapy, PET scan showed progression of osseous disease. Patient has failed chemotherapy and immunotherapy and radiation treatment. Not felt to be candidate for clinical trial. -Hypercalcemia of malignancy. Also contribution from decreased oral intake. 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 Follow closely -Pancytopenia, likely from chemotherapy Follow CBC -Acute on chronic pain from metastatic disease of the T6-T8 thoracic spine.. Continue with oxycodone, Duragesic patch,. Detached K pad. -Chronic constipation with acute exacerbation from narcotics Responded to laxatives -Chronic kidney disease, stage 2 Patient's creatinine was 1.75 in September of this year. Renal ultrasound: Nonspecific -Moderate protein calorie malnutrition from decreased oral intake from underlying malignancy. PEG tube feeding -Acute and chronic medical debility. Patient has been pretty much bedbound Disposition: Home with [facility] Plan - Discharge Summary New Discharge Prescriptions: Continue Pantoprazole [Protonix] 40 mg PO AC-BID #60 tab Lidocaine-Prilocaine Cream [Emla Cream 2.5%/2.5%] 1 applic TOPICAL DIRECTED PRN PRN Reason: PORT ACCESS ALPRAZolam [Xanax] 0.5 mg PO Q12H PRN PRN Reason: Anxiety fentaNYL 50MCG/HR PATCH [Duragesic 50MCG/HR] 1 patch TRANSDERM Q48H Cevimeline [Evoxac] 30 mg PO TID fentaNYL 100MCG/HR PATCH [Duragesic 100MCG/HR] 1 patch TRANSDERM Q48H Pilocarpine [Salagen] 5 mg PO TID oxyCODONE HCL [oxyCODONE HCL (IR)] 15 - 30 mg PO Q4H PRN #0 PRN Reason: Pain Fluoride (Sodium) [Sodium Fluoride 5000 Plus] 1 applic DENTAL DAILY Discontinued Multivitamins, Thera [Multivitamin (formulary)] 1 tab PO DAILY Losartan Potassium [Cozaar] 100 mg PO DAILY Naloxone HCl [Narcan] 4 mg NASAL ONCE PRN PRN Reason: OVERDOSE Discharge Medication List Cevimeline [Evoxac] 30 mg PO TID 12/31/20 [History] Pilocarpine [Salagen] 5 mg PO TID 03/12/21 [History] fentaNYL 100MCG/HR PATCH [Duragesic 100MCG/HR] 1 patch TRANSDERM Q48H 03/12/21 [History] Pantoprazole [Protonix] 40 mg PO AC-BID #60 tab 03/17/21 [Rx] oxyCODONE HCL [oxyCODONE HCL (IR)] 15 - 30 mg PO Q4H PRN #0 03/17/21 [Rx] ALPRAZolam [Xanax] 0.5 mg PO Q12H PRN 04/17/21 [History] Fluoride (Sodium) [Sodium Fluoride 5000 Plus] 1 applic DENTAL DAILY 04/17/21 [History] Lidocaine-Prilocaine Cream [Emla Cream 2.5%/2.5%] 1 applic TOPICAL DIRECTED PRN 04/17/21 [History] fentaNYL 50MCG/HR PATCH [Duragesic 50MCG/HR] 1 patch TRANSDERM Q48H 04/17/21 [History] Follow up Appointment(s)/Referral(s): Peter Skelton DO [Primary Care Provider] - 1-2 days Discharge Disposition: HOME WITH HOSPICE
--- NOTE | 2021-04-19 15:15 | P.PN ---
Subjective Progress Note Date: 04/19/21 Principal diagnosis: Pt is seen for f/u for JEAN and hypercalcemia. Hospice care being considered. Cr remains elevated. Ca 14.9 Pt is maintained on IVF. Objective - Vital Signs Vital signs: Vital Signs Temp 97.7 F 04/19/21 12:43 Pulse 76 04/19/21 12:43 Resp 15 04/19/21 12:43 BP 131/72 04/19/21 12:43 Pulse Ox 98 04/19/21 12:43 Intake & Output 04/18/21 04/19/21 04/19/21 18:59 06:59 18:59 Intake Total 1630 Balance 1630 Weight 68 kg Intake: Intake, IV Titration 1040 Amount Sodium Chloride 0.9% 1, 1040 000 ml @ 130 mls/hr IV . Q7H42M JOSEFINA Rx#:[id number] Oral 590 Other: Voiding Method Urinal Urinal # Voids 1 2 2 - Exam Awake. Euvolemic. No edema Lungs are clear with decreased breath sounds in bases. Abdomen is soft, non tender. CVS S1 and S2 Extremities, no edema. - Labs CBC & Chem 7: 04/18/21 08:32 04/19/21 04:33 Labs: Abnormal Lab Results - Last 24 Hours (Table) 04/18/21 04/18/21 04/19/21 Range/Units 16:28 20:24 04:33 Sodium 129 L (137-145) mmol/L Chloride 95 L (98-107) mmol/L BUN 100 H (9-20) mg/dL Creatinine 3.08 H (0.66-1.25) mg/dL Glucose 209 H (74-99) mg/dL POC Glucose (mg/dL) 162 H 182 H (75-99) mg/dL Calcium 14.9 H* (8.4-10.2) mg/dL 04/19/21 04/19/21 Range/Units 08:29 11:55 Sodium (137-145) mmol/L Chloride (98-107) mmol/L BUN (9-20) mg/dL Creatinine (0.66-1.25) mg/dL Glucose (74-99) mg/dL POC Glucose (mg/dL) 208 H 212 H (75-99) mg/dL Calcium (8.4-10.2) mg/dL Assessment and Plan Assessment: 1. JEAN ,ATN and secondary to hypercalcemia 2. Hypercalcemia secondary to malignancy 3. Oral / head and neck cancer, s/p chemo, radiation Rx 4. Volume depletion. Plan: Agree with plans for hospice. I will cancel the [facility] kidneys. Continue with IVF until discharge.
== END 2021-04-19 15:20 | disposition hospice, home (50) | DRG 682 ==
LOC: EC 12:33 → 3SCARD 16:51 → 5NMEDONC 04-18 22:18
PROVIDERS: ADMIT Hospitalist; ATTEND Hospitalist
DX: N17.0 Acute kidney failure with tubular necrosis (principal); E43 Unspecified severe protein-calorie malnutrition; D61.810 Antineoplastic chemotherapy induced pancytopenia; C79.51 Secondary malignant neoplasm of bone; Z68.1 Body mass index [BMI] 19.9 or less, adult; C77.0 Secondary and unspecified malignant neoplasm of lymph nodes of head, face and neck; E87.1 Hypo-osmolality and hyponatremia; E83.52 Hypercalcemia; M19.90 Unspecified osteoarthritis, unspecified site; R62.7 Adult failure to thrive; R47.1 Dysarthria and anarthria; N18.2 Chronic kidney disease, stage 2 (mild); E83.42 Hypomagnesemia; G89.3 Neoplasm related pain (acute) (chronic); D63.8 Anemia in other chronic diseases classified elsewhere; E86.0 Dehydration; R53.81 Other malaise; E87.5 Hyperkalemia; I12.9 Hypertensive chronic kidney disease with stage 1 through stage 4 chronic kidney disease, or unspecified chronic kidney disease; R13.10 Dysphagia, unspecified; T45.1X5A Adverse effect of antineoplastic and immunosuppressive drugs, initial encounter; K59.09 Other constipation; T40.605A Adverse effect of unspecified narcotics, initial encounter; W19.XXXA Unspecified fall, initial encounter; Z74.01 Bed confinement status; Z51.5 Encounter for palliative care; Z85.810 Personal history of malignant neoplasm of tongue; Z92.3 Personal history of irradiation; Z92.21 Personal history of antineoplastic chemotherapy; Z98.890 Other specified postprocedural states; Z79.899 Other long term (current) drug therapy; Z85.118 Personal history of other malignant neoplasm of bronchus and lung; Z93.1 Gastrostomy status; Z80.9 Family history of malignant neoplasm, unspecified
CPT/HCPCS: 36415; 70450; 71046; 76770; 80048; 80053; 81001; 82140; 82330; 82550; 83605; 83690; 83735; 84484; 85025; 93005; 99285